=== PATIENT | female | born 1950 | race Hispanic/Latino ===

== ENCOUNTER 2021-09-15 11:33 | Emergency (ER) | payer OTHER ==
[2021-09-15 13:11] LABS: Urine Blood 1+ (Negative); Urine Glucose Trace (Negative); Urine Protein 3+ (Negative)
[2021-09-15 13:18] LABS: Absolute Lymphocytes (CBC) 3.2 K/uL (0.7-4.9); Hematocrit 48.1 % (36.0-45.0); Lymphocytes % 34.5 % (15.3-44.8); MCV 88.1 fL (80-100); RBC Red Blood Cell Count 5.45 M/uL (3.86-4.86)
[2021-09-15] MEDS ORDERED: KETOROLAC 30 MG/ML INJ ONE (13:19)
[2021-09-15 13:25] LABS: Urine Bacteria <20 /HPF (<20); Urine Mucus 1+ /HPF (None Seen)
[2021-09-15 13:29] LABS: Albumin 4.4 g/dL (3.4-5.0); Bilirubin Total 1.1 mg/dL (0.2-1.0); Protein, Total 8.4 g/dL (6.4-8.2)
[2021-09-15] MEDS ORDERED: LIDOCAINE 4% PATCH ONE (14:19)
--- NOTE | 2021-09-15 14:23 | RAD REPORT ---
EXAM DESCRIPTION: CT - Stone Protocol - 09/15/2021 2:17 pm CLINICAL HISTORY: Flank pain. Flank pain, kidney stone suspected COMPARISON: No comparisons TECHNIQUE: Axial images were obtained without oral or IV contrast. Lack of contrast limits solid org an and vascular assessment. The [id number] spans the entirety of the system partially obscuring uppermost abdomen and lung bases. Coronal reformatted images were obtained and reviewed. All CT scans are performed using dose optimization technique as appropriate and may include automated exposure control or mA/KV adjustment according to patient size. FINDINGS: The lower lung kilpatrick are clear. Imaged portions of the liver and spleen show no suspicious findings on non-contrast imaging. The panc reas and adrenal glands are normal. No pathologic lymphadenopathy in the abdomen or pelvis. No urinary tract stones or obstructive uropathy. No bowel obstruction, free air, free fluid or abscess. Normal appendix noted.Sigmoid diverticulosis w ithout diverticulitis. No significant bony abnormality. IMPRESSION: No urinary tract stones or obstructive uropathy.
[2021-09-15] MEDS ORDERED: MORPHINE 4 MG/ML SYR ONE (15:14)
[2021-09-15] MEDS ORDERED: CIPROFLOXACIN HCL 500 MG TAB ONE (16:53)
[2021-09-15] MEDS ORDERED: NA CHLORIDE 0.9% 50 ML ONE (16:53)
[2021-09-15] MEDS ORDERED: CEFTRIAXONE 1000 MG/VIAL ONE (16:53)
--- NOTE | 2021-09-15 17:17 | ER ---
Nurse's Notes [facility] Name: Meron Daly Age: 70 yrs Sex: Female : 1950 Arrival Date: 09/15/2021 Time: 11:41 Bed 14 Private MD: Diagnosis: UTI/ Urinary tract infection, site not specified;Low back pain Presentation: 09/15 12:45 Chief complaint: Patient states: Right flank pain - went to [facility] and was told I had a ld1 kidney infection. Reporting right flank pain. Coronavirus screen: At this time, the client does not indicate any symptoms associated with coronavirus-19. Ebola Screen: No symptoms or risks identified at this time. Initial Sepsis Screen: Does the patient meet any 2 criteria? No. Patient's initial sepsis screen is negative. Does the patient have a suspected source of infection? No. Patient's initial sepsis screen is negative. Risk Assessment: Do you want to hurt yourself or someone else? Patient reports no desire to harm self or others. Onset of symptoms was September 15, 2021 at 12:46. 12:45 Method Of Arrival: Ambulatory ld1 12:45 Acuity: MOO 3 ld1 Triage Assessment: 12:48 General: Appears in no apparent distress. comfortable, Behavior is calm, cooperative, ld1 appropriate for age. Pain: Complains of pain in right low back. EENT: No signs and/or symptoms were reported regarding the EENT system. Neuro: Level of Consciousness is awake, alert, obeys commands, Oriented to person, place, time, situation. Cardiovascular: Capillary refill < 3 seconds Patient's skin is warm and dry. Respiratory: Airway is patent Respiratory effort is even, unlabored. GI: Abdomen is round non-distended. : Reports burning with urination, pain in right flank(s). Derm: No signs and/or symptoms reported regarding the dermatologic system. Musculoskeletal: No signs and/or symptoms reported regarding the musculoskeletal system. Historical: - Allergies: 12:47 Sulfa (Sulfonamide Antibiotics); ld1 - Home Meds: 12:47 Cymbalta 30 mg oral cpDR 1 cap once daily [Active]; ld1 - PMHx: 12:48 GERD; Depressive disorder; ld1 - PSHx: 12:47 tubal ligation; Total abdominal hysterectomy; section; ld1 - Immunization history:: Adult Immunizations up to date, Client reports receiving the 2nd dose of the Covid vaccine. - Social history:: Smoking status: Patient denies any tobacco usage or history of. Patient/guardian denies using alcohol. Screenin:29 Abuse screen: Denies threats or abuse. Nutritional screening: No deficits noted. jd3 Tuberculosis screening: No symptoms or risk factors identified. Fall Risk Ambulatory Aid- None/Bed Rest/Nurse Assist (0 pts). Gait- Normal/Bed Rest/Wheelchair (0 pts) Mental Status- Oriented to own ability (0 pts). Total Vee Fall Scale indicates No Risk (0-24 pts). Assessment: 14:00 General: Appears in no apparent distress. comfortable, Behavior is calm, cooperative, jd3 appropriate for age. Pain: Complains of pain in right low back Pain currently is 10 out of 10 on a pain scale. Quality of pain is described as sharp, tender. Neuro: Fernandez Agitation-Sedation Scale (RASS): 0 - Alert and Calm Level of Consciousness is awake, alert, obeys commands, Oriented to person, place, time, situation. Cardiovascular: Capillary refill < 3 seconds Patient's skin is warm and dry. Respiratory: Airway is patent Respiratory effort is even, unlabored, Respiratory pattern is regular, symmetrical, Denies cough, shortness of breath. GI: No signs and/or symptoms were reported involving the gastrointestinal system. : Reports cramping. EENT: No signs and/or symptoms were reported regarding the EENT system. Derm: Skin is intact, Skin is dry, Skin is normal, Skin temperature is warm. Musculoskeletal: Circulation, motion, and sensation intact. Range of motion: intact in all extremities. 16:26 Reassessment: Patient appears in no apparent distress at this time. Patient and/or jd3 family updated on plan of care and expected duration. Pain level reassessed. Patient is alert, oriented x 3, equal unlabored respirations, skin warm/dry/pink. Patient states feeling better. 17:29 Reassessment: Patient appears in no apparent distress at this time. Patient and/or jd3 family updated on plan of care and expected duration. Pain level reassessed. Patient is alert, oriented x 3, equal unlabored respirations, skin warm/dry/pink. Patient denies pain at this time. Patient states feeling better. Vital Signs: 12:45 BP 135 / 107; Pulse 93; Resp 18; Temp 98.6(O); Pulse Ox 99% on R/A; Weight 72.57 kg; ld1 Height 5 ft. 0 in. (152.40 cm); Pain 8/10; 15:15 BP 159 / 83; Pulse 73; Resp 16; Pulse Ox 98% on R/A; jd3 16:26 BP 150 / 92; Pulse 75; Resp 16; Pulse Ox 97% on R/A; Pain 0/10; jd3 17:29 BP 158 / 86; Pulse 76; Resp 16; Pulse Ox 98% on R/A; Pain 0/10; jd3 12:45 Body Mass Index 31.25 (72.57 kg, 152.40 cm) ld1 ED Course: 11:41 Patient arrived in ED. mr 12:19 Francisco Staton PA is PHCP. cp 12:19 Jos Garcia MD is Attending Physician. cp 12:46 Triage completed. ld1 12:48 Arm band placed on right wrist. Patient placed in an exam room. EKG completed in ld1 triage. Results shown to MD. EKG completed in triage. Results shown to MD. 13:04 Inserted saline lock: 22 gauge in left antecubital area, using aseptic technique. tm3 13:11 Initial lab(s) drawn, by me, sent to lab. Urine collected: clean catch specimen, krystle tm3 colored. 13:39 Reed Houston, RN is Primary Nurse. jd3 14:19 Stone Protocol In Process Unspecified. EDMS 17:30 Patient has correct armband on for positive identification. Bed in low position. Call jd3 light in reach. Side rails up X 1. Adult w/ patient. Pulse ox on. NIBP on. 17:30 No provider procedures requiring assistance completed. IV discontinued, intact, jd3 bleeding controlled, No redness/swelling at site. Pressure dressing applied. Administered Medications: 13:14 Drug: Ketorolac 15 mg Route: IVP; Site: left antecubital; ld1 14:00 Follow up: Response: No adverse reaction jd3 14:24 Drug: Lidoderm Patch 5 % (700 mg/patch) 1 patches Route: Topical; Site: affected area; jd3 15:20 Follow up: Response: No adverse reaction jd3 15:15 Drug: morphine 4 mg Route: IVP; Infused Over: 4 mins; Site: left antecubital; jd3 16:00 Follow up: Response: No adverse reaction; RASS: Alert and Calm (0) jd3 16:52 Drug: Ciprofloxacin 500 mg Route: PO; jd3 17:32 Follow up: Response: No adverse reaction jd3 16:53 Drug: Rocephin - (cefTRIAXone) 1 grams Route: IVPB; Infused Over: 30 mins; Site: left jd3 antecubital; 17:31 Follow up: Response: No adverse reaction; IV Status: Completed infusion jd3 Medication: 17:31 VIS not applicable for this client. jd3 Outcome: 17:16 Discharge ordered by MD. cp 17:30 Discharged to home ambulatory, with family. jd3 17:30 Condition: stable 17:30 Discharge instructions given to patient, family, Instructed on discharge instructions, follow up and referral plans. medication usage, Demonstrated understanding of instructions, follow-up care, medications, Prescriptions given X 4. 17:31 Patient left the ED. jd3 Signatures: Dispatcher [employer] EDMS SpencerMichael tm3 Phelps, Lillie mr Francisco Staton, CARMEN PA Reed Tadeo RN RN jd3 Francesca Esqueda RN RN ld1 Corrections: (The following items were deleted from the chart) 12:47 12:45 Pulse 93bpm; Resp 18bpm; Pulse Ox 99% RA; Temp 98.6F Oral; 72.57 kg; Height 5 ft. ld1 0 in.; BMI: 31.2; Pain 8/10; ld1 12:48 12:46 Allergies: No Known Allergies; ld1 ld1
--- NOTE | 2021-09-15 17:17 | EDPHYS ---
Physician Documentation [facility] Name: Meron Daly Age: 70 yrs Sex: Female : 1950 Arrival Date: 09/15/2021 Time: 11:41 Bed 14 Private MD: ED Physician Jos Garcia HPI: 09/15 13:00 This 70 yrs old Female presents to ER via Ambulatory with complaints of Flank cp Pain. 13:00 The patient complains of pain in the right flank. The pain radiates to the right hip cp and right low back and right lower abdomen. 13:00 Associated signs and symptoms: Pertinent positives: dysuria, Pertinent negatives: cp diarrhea, fever, headache, pain radiating to the lower extremities, vomiting. Severity of pain: in the emergency department the pain is unchanged despite home interventions. The patient has been recently seen by a physician: in [facility], with similar presenting complaints, and apparently given a diagnosis of uti, prescribed cefdinir antibiotic but patient has not noticed improvement of urinary symptoms. Historical: - Allergies: 12:47 Sulfa (Sulfonamide Antibiotics); ld1 - Home Meds: 12:47 Cymbalta 30 mg oral cpDR 1 cap once daily [Active]; ld1 - PMHx: 12:48 GERD; Depressive disorder; ld1 - PSHx: 12:47 tubal ligation; Total abdominal hysterectomy; section; ld1 - Immunization history:: Adult Immunizations up to date, Client reports receiving the 2nd dose of the Covid vaccine. - Social history:: Smoking status: Patient denies any tobacco usage or history of. Patient/guardian denies using alcohol. ROS: 13:05 Constitutional: Negative for body aches, chills, fever, poor PO intake. cp 13:05 Respiratory: Negative for cough, shortness of breath, wheezing. cp 13:05 Abdomen/GI: Negative for vomiting, diarrhea, constipation. 13:05 Back: Positive for flank pain, on the right. 13:05 Neuro: Negative for altered mental status, headache, numbness, weakness. 13:05 All other systems are negative. Exam: 13:10 Constitutional: The patient appears in no acute distress, alert, awake, non-toxic, well cp developed, well nourished, uncomfortable. 13:10 Head/Face: Normocephalic, atraumatic. cp 13:10 Eyes: Periorbital structures: appear normal, Conjunctiva: normal, no exudate, no injection, Sclera: no appreciated abnormality, Lids and lashes: appear normal, bilaterally. 13:10 ENT: External ear(s): are unremarkable, Nose: is normal, Mouth: Lips: moist, Oral mucosa: pink and intact, moist, Posterior pharynx: Airway: no evidence of obstruction, patent. 13:10 Neck: ROM/movement: is normal, is supple, without pain, no range of motions limitations. 13:10 Chest/axilla: Inspection: normal. 13:10 Cardiovascular: Rate: normal, Rhythm: regular. 13:10 Respiratory: the patient does not display signs of respiratory distress, Respirations: normal, no use of accessory muscles, no retractions, labored breathing, is not present, Breath sounds: are clear throughout, no decreased breath sounds, no stridor, no wheezing. 13:10 Abdomen/GI: Inspection: abdomen appears normal, Bowel sounds: active, all quadrants, Palpation: soft, in all quadrants, moderate abdominal tenderness, in the posterior aspect of right lateral abdomen, anterior aspect of right lateral abdomen and right lower quadrant, rebound tenderness, is not appreciated, involuntary guarding, is not appreciated. 13:10 Back: pain, that is moderate, of the right low back, ROM is painful, with all movement. 13:10 Skin: no rash present. 13:10 Neuro: Orientation: to person, place \T\ time. Mentation: is normal, Motor: moves all fours, strength is normal, Sensation: is normal, Gait: is steady, at a normal pace, without difficulty. Vital Signs: 12:45 BP 135 / 107; Pulse 93; Resp 18; Temp 98.6(O); Pulse Ox 99% on R/A; Weight 72.57 kg; ld1 Height 5 ft. 0 in. (152.40 cm); Pain 8/10; 15:15 BP 159 / 83; Pulse 73; Resp 16; Pulse Ox 98% on R/A; jd3 16:26 BP 150 / 92; Pulse 75; Resp 16; Pulse Ox 97% on R/A; Pain 0/10; jd3 17:29 BP 158 / 86; Pulse 76; Resp 16; Pulse Ox 98% on R/A; Pain 0/10; jd3 12:45 Body Mass Index 31.25 (72.57 kg, 152.40 cm) ld1 MDM: 13:40 Patient medically screened. cp 17:15 Data reviewed: vital signs, nurses notes, lab test result(s), radiologic studies, CT cp scan. 17:15 Differential diagnosis: nephrolithiasis, pyelonephritis, UTI, diverticulitis. cp Counseling: I had a detailed discussion with the patient and/or guardian regarding: the historical points, exam findings, and any diagnostic results supporting the discharge/admit diagnosis, lab results, radiology results, the need for outpatient follow up, a family practitioner, to return to the emergency department if symptoms worsen or persist or if there are any questions or concerns that arise at home. Response to treatment: the patient's symptoms have markedly improved after treatment, and as a result, I will discharge patient. Special discussion: Based on the patient's Hx, exam, and Dx evaluation, there is no indication for emergent surgery or inpatient Tx. It is understood by the patient/guardian that if the Sx's persist or worsen they need to return immediately for re-evaluation. 09/15 12:50 Order name: CBC with Diff; Complete Time: 13:57 09/15 16:22 Interpretation: Normal except: RBC 5.45; HGB 16.6; HCT 48.1. 09/15 12:50 Order name: CMP; Complete Time: 13:57 09/15 16:23 Interpretation: Normal except: GLUC 136; BILIT 1.1; CA 10.3; TP 8.4; GLOB 4.0. 09/15 12:50 Order name: Lipase; Complete Time: 13:57 09/15 12:50 Order name: Urine Microscopic Only; Complete Time: 13:57 09/15 13:12 Order name: Urine Dipstick-Ancillary; Complete Time: 13:57 EDMS 09/15 16:24 Interpretation: Normal except: UBLD 1+; UKET 1+; UPROT 3+; UNIT Positive; UESTR 3+. 09/15 13:58 Order name: CT Stone Protocol 09/15 12:50 Order name: IV Saline Lock; Complete Time: 13:14 09/15 12:50 Order name: Labs collected and sent; Complete Time: 13:14 09/15 14:02 Order name: Stone Protocol; Complete Time: 16:21 EDMS 09/15 16:21 Interpretation: Report reviewed. cp 09/15 12:50 Order name: Urine Dipstick-Ancillary (obtain specimen); Complete Time: 13:14 cp Administered Medications: 13:14 Drug: Ketorolac 15 mg Route: IVP; Site: left antecubital; ld1 14:00 Follow up: Response: No adverse reaction jd3 14:24 Drug: Lidoderm Patch 5 % (700 mg/patch) 1 patches Route: Topical; Site: affected area; jd3 15:20 Follow up: Response: No adverse reaction jd3 15:15 Drug: morphine 4 mg Route: IVP; Infused Over: 4 mins; Site: left antecubital; jd3 16:00 Follow up: Response: No adverse reaction; RASS: Alert and Calm (0) jd3 16:52 Drug: Ciprofloxacin 500 mg Route: PO; jd3 17:32 Follow up: Response: No adverse reaction jd3 16:53 Drug: Rocephin - (cefTRIAXone) 1 grams Route: IVPB; Infused Over: 30 mins; Site: left jd3 antecubital; 17:31 Follow up: Response: No adverse reaction; IV Status: Completed infusion jd3 Disposition Summary: 09/15/21 17:16 Discharge Ordered Location: Home cp Problem: an ongoing problem cp Symptoms: have improved cp Condition: Stable cp Diagnosis - UTI/ Urinary tract infection, site not specified cp - Low back pain cp Followup: cp - With: Private Physician - When: 2 - 3 days - Reason: Recheck today's complaints Discharge Instructions: - Discharge Summary Sheet cp - Acute Back Pain, Adult cp - Urinary Tract Infection, Adult cp - Heat Therapy cp Forms: - Medication Reconciliation Form cp - Thank You Letter cp - Antibiotic Education cp - Prescription Opioid Use cp Prescriptions: - Lidoderm 5 % Topical adhesive patch,medicated - apply 1 patch by TOPICAL route once daily; 20 patch; Refills: 0, Product cp Selection Permitted - Ibuprofen 800 mg Oral Tablet - take 1 tablet by ORAL route every 8 hours As needed take with food; 30 tablet; cp Refills: 0, Product Selection Permitted - Cipro 500 mg Oral Tablet - take 1 tablet by ORAL route every 12 hours for 7 days; 14 tablet; Refills: 0, cp Product Selection Permitted - Tylenol-Codeine #3 300 mg-30 mg Oral - take 2 tablet by ORAL route every 8 hours; 14 tablet; Refills: 0, Product cp Selection Permitted Signatures: Dispatcher [employer] Francisco Pepe PA PA cp Davies, Jonathon RN RN jd3 Francesca Esqueda RN RN ld1 Corrections: (The following items were deleted from the chart) 12:48 12:46 Allergies: No Known Allergies; ld1 ld1 16:23 16:23 Normal except: GLUC 136. cp cp
[2021-09-15 18:21] VITALS: TEMP 98.6
[2021-09-15 18:32] VITALS: BP 158/86; O2SAT 98
== END 2021-09-15 17:31 | disposition home or self-care (01) ==
LOC: ER 11:33
DX: N39.0 Urinary tract infection, site not specified (principal); F32.A Depression, unspecified; Z88.2 Allergy status to sulfonamides
CPT/HCPCS: 96365; 85025; 36415; 83690; 80053; 76377; 74176; 96375; 99284; J2001; 81003; 81015

== ENCOUNTER 2021-09-19 15:04 | Emergency (ER) | payer OTHER ==
--- OUTSIDE RECORDS SUMMARY | 2021-09-19 15:16 | XMS REPORT | Continuity of Care Document ---
:1950 Author Organization [facility] t Address [address] [place] [address] [address]. [address] [place] [address] Care Team Providers Name Role Phone JOESPH SHAY Primary Care Physician Unavailable RADIOLOGY Attending Clinician Unavailable Bui_Q Attending Clinician Unavailable WINTER Attending Clinician Unavailable Michael BLOOD BANK SPECIALIST Attending Clinician Doctor Unassigned, Name Attending Clinician Unavailable Bui_Q_WAGDNU Attending Clinician Unavailable Robin-Gor_M Attending Clinician Unavailable [email or web address] Attending Clinician Unavailable Bib Attending Clinician [phone] Lab, Fam Pob I Attending Clinician Unavailable Toy MADRIGAL, A Attending Clinician Unavailable Radha PANDYAP Attending Clinician OMAGHOMI Attending Clinician Unavailable Robin-Gor_M_WAG Attending Clinician Unavailable Bui_Q Admitting Clinician Unavailable WINTER Admitting Clinician Unavailable Bui_Q_WAGDNU Admitting Clinician Unavailable Robin-Gor_M Admitting Clinician Unavailable [email or web address] Admitting Clinician Unavailable Robin-Gor_M_WAG Admitting Clinician Unavailable Payers Payer Name Policy Type Policy Number Effective Date Expiration Date William [employer] - [id number] [facility] 00:00:00 (MEDICARE REPLACEMENT/ADVANTA GE - [place] [id number] [place] [facility] DUAL [id number] 2021 COMP HMO D SNP 00:00:00 [facility] [id number] 2020 [place] 00:[place]:00 D[place] ELIG[place] (MEDICARE REPLACEMENT/ADVANTA GE - HMO) UHC - MEDICARE [id number] COMPLETE (MEDICARE REPLACEMENT HMO) Problems Condition Condition Condition Status Onset Resolution Last Treating Co mments Source Name Details Category Date Date Treatment Clinician Date Dry eyes Dry Eyes Problem Active 2020-02 Yong saleh 2-03 Family 00:00: Practic 00 e Leukocytos Leukocytos Problem Active [facility] is is 7-21 Family 00:00: Practic 00 e 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 Impairment 00:00: Pr actic 00 e Chronic Chronic Problem Active [facility] idiopathic Idiopathic 08-29 Fa terri constipati Constipati 00:00: Pr actic on on 00 e Overactive Overactive Problem Active V ill[facility] bladder Bladder 4-02 Family 00:00: Practic 00 e Osteopenia Osteopenia Problem Active [facility] 3-25 Family 00:00: Practic 00 e Insomnia Insomnia Problem Active Yong saleh 7-18 Family 00:00: Practic 00 e Asthma Asthma Problem Active [facility] 6-11 Family 00:00: Practic 00 e Dyslipidem Dyslipidem Problem Active V illage ia ia 3-04 Family 00:00: Practic 00 e Prediabete Prediabete Problem Active V illage s s 3-04 Family 00:00: Practic 00 e Anxiety Anxiety Problem Active [facility] disorder Disorder 1-28 Family 00:00: Practic 00 e Depressive Depressive Problem Active [facility] ill[facility] disorder Disorder 1-28 Family 00:00: Practic 00 e Obstructiv Obstructiv Problem Active V illage e sleep e Sleep 1-28 Family apnea Apnea 00:00: Practic syndrome Syndrome 00 e No known No known Disease Unive rs active active ity of problems problems [place] [facility] Allergies, Adverse Reactions, Alerts Allergy Allergy Status Severity Reaction(s) Onset Inactive Treating Comm ents Source Name Type Date Date Clinician SULFA Drug Active Hiv Univers (SULFONA Class 7-20 ity of MIDE 00:00: [place] ANTIBIOT 00 Medical ICS) Branch Sulfa Propensi Active Univers (Sulfona ty to 7-20 ity of mide adverse 00:00: [place] Antibiot reaction 00 Medica l ics) Branch SULFA Allergy Active [place] (SULFONA to Family MIDE substanc Practic ANTIBIOT e e ICS) [place] Allergy Active Hallucinatio V illage ast to ns Family substanc Practic e e NO KNOWN Drug Active [facility] ALLERGIE Class ity of [facility] [place] [facility] Social History Social Habit Start Date Stop Date Quantity Comments Source Exposure to 2021-09-03 2021-09-13 Not sure [facility] SARS-CoV-2 00:00:00 14:21:00 [facility] (event) Branch Alcohol intake 2021-09-13 2021-09-13 Current University 00:00:00 00:00:00 non-drinker of [place] [facility] alcohol [place] (finding) Sex Ass[birth year] At [birth year] Universit y of 00:00:00 00:00:00 [facility] Smoking Status Start Date Stop Date Source Never smoked tobacco [facility] [place] [place] Medications Ordered Filled Start Stop Current Ordering Indication Dosage Frequency Signature Comments Components Source Medication Medication Date Date Medication? Clinician (SIG) Name Name cefTRIAXone 2021- No 1000mg 1,000 mg, Univers (ROCEPHIN) 09-13 IV ity of 1,000 mg in 23:00: 23:16 Piggyback, [place] NaCl 0.9% 00 :00 ONCE, 1 Medical (NS) 50 mL dose, On [facility] h MINI-BAG Sat09/13/21 at 1800, Administer over 30 Minutes, 50 mL
Reas on for Anti-Infec tive: Documented Infection< br>Documen kwabena Infection Site: Urine<br&g t;Duration of Therapy: 7 days ondansetron 2021- No 4mg 4 mg, Univ ers (ZOFRAN-ODT 09-13 Oral, ity of ) 22:30: 21:46 ONCE, 1 [place] disintegrat 00 :00 dose, On [facility] ing tablet Sat 4 mg 09/13/21 at 1730, Routine ketorolac 2021- No 15mg 15 mg, Unive rs (TORADOL) 09-13 Slow IV ity of injection 21:30: 21:46 Push, [place] 15 mg 00 :00 ONCE, 1 Medical dose, On Branch 09/13/21 at 1630, CICI methocarbam Yes [id number] 500mg Take 1 Univers oL 500 mg 7-20 tablet by ity o f tablet 00:00: mouth 4 [place] 00 (four) Medical times Branch daily as needed for Pain (scale 4-6). ondansetron Yes [id number] 4mg Take 1 Univers 4 mg 7-20 tablet by ity of disintegrat 00:00: mouth [place] ing tablet 00 every 8 Medica l (eight) Branch hours as needed for Nausea and Vomiting (N/V). cefdinir 2021- Yes [id number] 300mg Take 1 U nivers 300 mg -13 09- capsule by ity of capsule 00:00: 04:59 mouth in [place] 00 :00 the Medical morning Branch and 1 capsule in the evening. Do all this for 10 days. phenazopyri 2021- Yes [id number] 200mg Take 1 Univers dine 200 mg -13 09- tablet by it y of tablet 00:00: 04:59 mouth in [place] 00 :00 the Medical morning Branch and 1 tablet at noon and 1 tablet in the evening. Do all this for 2 days. escitalopra Yes 20mg Take 20 mg Univers m (LEXAPRO) 11-01 by mouth ity of 20 mg 15:29: daily. [facility] escitalopra Yes 20mg Take 20 mg Univers m (LEXAPRO) 11-01 by mouth ity of 20 mg 15:29: daily. [facility] escitalopra Yes 20mg Take 20 mg Univers m (LEXAPRO) 11-01 by mouth ity of 20 mg 15:29: daily. [place] tablet 26 [facility] escitalopra Yes 20mg Take 20 mg Univers m (LEXAPRO) 11-01 by mouth ity of 20 mg 15:29: daily. [facility] 26 [facility] escitalopra Yes 20mg Take 20 mg Univers m (LEXAPRO) 11-01 by mouth ity of 20 mg 15:29: daily. [address] escitalopra Yes 20mg Take 20 mg Univers m (LEXAPRO) 11-01 by mouth ity of 20 mg 15:29: daily. [place] tablet 26 Medical Branch vitamin Yes 1000ug Take 1000 Uni vers B-12 9-07 mcg by ity of (VITAMIN 15:28: mouth [place] B-12) 1,000 32 daily. Medica l mcg tablet Branch VITAMIN B-6 Yes Take by Uni vers ORAL 07 mouth. ity of 15:28: [place] 32 Medical Branch Cod Liver Yes Take by Unive rs Oil 11-01 mouth. ity of (NATURAL 15:28: [place] COD LIVER 32 Medical OIL) Cap Branch vitamin Yes 1000ug Take 1000 Uni vers B-12 9-07 mcg by ity of (VITAMIN 15:28: mouth [place] B-12) 1,000 32 daily. Medica l mcg tablet Branch VITAMIN B-6 Yes Take by Uni vers ORAL 11-01 mouth. ity of 15:28: [place] 32 Medical Branch Cod Liver Yes Take by Unive rs Oil 11-01 mouth. ity of (NATURAL 15:28: [place] COD LIVER 32 Medical OIL) Cap Branch vitamin Yes 1000ug Take 1000 Uni vers B-12 9-07 mcg by ity of (VITAMIN 15:28: mouth [place] B-12) 1,000 32 daily. Medica l mcg tablet Branch VITAMIN B-6 Yes Take by Uni vers ORAL 11-01 mouth. ity of 15:28: [place] 32 Medical Branch Cod Liver Yes Take by Unive rs Oil 07 mouth. ity of (NATURAL 15:28: [place] COD LIVER 32 Medical OIL) Cap Branch vitamin Yes 1000ug Take 1000 Uni vers B-12 9-07 mcg by ity of (VITAMIN 15:28: mouth [place] B-12) 1,000 32 daily. Medica l mcg tablet Branch VITAMIN B-6 Yes Take by Uni vers ORAL 9-07 mouth. ity of 15:28: [place] 32 Medical Branch Cod Liver Yes Take by Unive rs Oil 07 mouth. ity of (NATURAL 15:28: [place] COD LIVER 32 Medical OIL) Cap Branch vitamin Yes 1000ug Take 1000 Uni vers B-12 9-07 mcg by ity of (VITAMIN 15:28: mouth [place] B-12) 1,000 32 daily. Medica l mcg tablet Branch VITAMIN B-6 Yes Take by Uni vers ORAL 11-01 mouth. ity of 15:28: [place] [address] Medical Branch Cod Liver Yes Take by Unive rs Oil 11-01 mouth. ity of (NATURAL 15:28: [place] COD LIVER 32 Medical OIL) Cap Branch vitamin Yes 1000ug Take 1000 Uni vers B-12 11-01 mcg by ity of (VITAMIN 15:28: mouth [place] B-12) 1,000 32 daily. Medica l mcg tablet Branch VITAMIN B-6 Yes Take by Uni vers ORAL 11-01 mouth. ity of 15:28: [place] [address] Medical Branch Cod Liver Yes Take by Unive rs Oil 11-01 mouth. ity of (NATURAL 15:28: [place] COD LIVER 32 Medical OIL) Cap Branch Cholecalcif Yes 1{capsu Take 1 Cap Univers tania 9-07 le} by mouth ity of (Vitamin 15:28: daily. [place] D3) 31 Medical (VITAMIN D) Branch 1,000 unit Cap Cholecalcif Yes 1{capsu Take 1 Cap Univers tania 9-07 le} by mouth ity of (Vitamin 15:28: daily. [place] D3) 31 Medical (VITAMIN D) Branch 1,000 unit Cap Cholecalcif Yes 1{capsu Take 1 Cap Univers tania 9-07 le} by mouth ity of (Vitamin 15:28: daily. [place] D3) 31 Medical (VITAMIN D) Branch 1,000 unit Cap Cholecalcif Yes 1{capsu Take 1 Cap Univers tania 9-07 le} by mouth ity of (Vitamin 15:28: daily. [place] D3) 31 Medical (VITAMIN D) Branch 1,000 unit Cap Cholecalcif Yes 1{capsu Take 1 Cap Univers tania 9-07 le} by mouth ity of (Vitamin 15:28: daily. [place] D3) 31 Medical (VITAMIN D) Branch 1,000 unit Cap Cholecalcif Yes 1{capsu Take 1 Cap Univers tania 9-07 le} by mouth ity of (Vitamin 15:28: daily. [place] D3) 31 Medical (VITAMIN D) Branch 1,000 unit Cap escitalopra Yes 20mg Take 20 mg Univers m (LEXAPRO) 11-01 by mouth ity of 20 mg 10:29: daily. [place] tablet 26 Medical Branch escitalopra Yes 20mg Take 20 mg Univers m (LEXAPRO) 11-01 by mouth ity of 20 mg 10:29: daily. [place] tablet 26 Medical Branch escitalopra Yes 20mg Take 20 mg Univers m (LEXAPRO) 11-01 by mouth ity of 20 mg 10:29: daily. [place] tablet 26 Medical Branch Cod Liver Yes Take by Unive rs Oil 11-01 mouth. ity of (NATURAL 10:28: [place] COD LIVER 32 Medical OIL) Cap Branch vitamin Yes 1000ug Take 1000 Uni vers B-12 9-07 mcg by ity of (VITAMIN 10:28: mouth [place] B-12) 1,000 32 daily. Medica l mcg tablet Branch VITAMIN B-6 Yes Take by Uni vers ORAL 11-01 mouth. ity of 10:28: [place] [address] Medical Branch Cod Liver Yes Take by Unive rs Oil 11-01 mouth. ity of (NATURAL 10:28: [place] COD LIVER 32 Medical OIL) Cap Branch vitamin Yes 1000ug Take 1000 Uni vers B-12 9-07 mcg by ity of (VITAMIN 10:28: mouth [place] B-12) 1,000 32 daily. Medica l mcg tablet Branch VITAMIN B-6 Yes Take by Uni vers ORAL 11-01 mouth. ity of 10:28: [place] [address] Medical Branch Cod Liver Yes Take by Unive rs Oil 11-01 mouth. ity of (NATURAL 10:28: [place] COD LIVER 32 Medical OIL) Cap Branch vitamin Yes 1000ug Take 1000 Uni vers B-12 9-07 mcg by ity of (VITAMIN 10:28: mouth [place] B-12) 1,000 32 daily. Medica l mcg tablet Branch VITAMIN B-6 Yes Take by Uni vers ORAL 9-07 mouth. ity of 10:28: [address] Branch Cholecalcif Yes 1{capsu Take 1 Cap Univers tania 9-07 le} by mouth ity of (Vitamin 10:28: daily. [place] D3) 31 Medical (VITAMIN D) Branch 1,000 unit Cap Cholecalcif Yes 1{capsu Take 1 Cap Univers tania 9-07 le} by mouth ity of (Vitamin 10:28: daily. [place] D3) 31 Medical (VITAMIN D) Branch 1,000 unit Cap Cholecalcif Yes 1{capsu Take 1 Cap Univers tania 9-07 le} by mouth ity of (Vitamin 10:28: daily. [place] D3) 31 Medical (VITAMIN D) Branch 1,000 unit Cap albuterol albuterol No albuterol [place] sulfate HFA sulfate HFA sulfate Family 90 90 HFA 90 Practic mcg/actuati mcg/actuati mcg/actuat e on aerosol on aerosol ion inhaler inhaler aerosol inhale 2 inhale 2 inhaler puffs BY puffs BY inhale 2 MOUTH EVERY MOUTH EVERY puffs BY 4-6 HOURS 4-6 HOURS MOUTH NEEDED NEEDED EVERY 4-6 FOR FOR HOURS SHORTNESS SHORTNESS NEEDED FOR OF BREATH OF BREATH SHORTNESS OR FOR OR FOR OF BREATH WHEEZING WHEEZING OR FOR WHEEZING duloxetine duloxetine No duloxetine [place] 60 mg 60 mg 60 mg Family capsule,del capsule,del capsule,de Practic ayed ayed layed e release release release TAKE 1 TAKE 1 TAKE 1 CAPSULE BY CAPSULE BY CAPSULE BY MOUTH DAILY MOUTH DAILY MOUTH DIRECTED DIRECTED DAILY DIRECTED ibuprofen ibuprofen No ibuprofen [facility] 800 mg 800 mg 800 mg Family tablet TAKE tablet TAKE tablet Practic 1 TABLET BY 1 TABLET BY TAKE 1 e MOUTH THREE MOUTH THREE TABLET BY TIMES DAILY TIMES DAILY MOUTH NEEDED NEEDED THREE TIMES DAILY NEEDED Linzess 290 Linzess 290 No Linzess [place] mcg capsule mcg capsule 290 mcg Family TAKE 1 TAKE 1 capsule Practic CAPSULE BY CAPSULE BY TAKE 1 e MOUTH DAILY MOUTH DAILY CAPSULE BY NEEDED NEEDED MOUTH DAILY NEEDED neomycin-po neomycin-po No neomycin-p [facility] lymyxin-dex lymyxin-dex olymyxin-d Family ameth 3.5 ameth 3.5 exameth Pr actic mg/mL-10,00 mg/mL-10,00 3.5 e 0 0 mg/mL-10,0 unit/mL-0.1 unit/mL-0.1 00 % eye drops % eye drops unit/mL-0. INSTILL 1 INSTILL 1 1% eye DROP INTO DROP INTO drops AFFECTED AFFECTED INSTILL 1 EYE(S) BY EYE(S) BY DROP INTO OPHTHALMIC OPHTHALMIC AFFECTED ROUTE EVERY ROUTE EVERY EYE(S) BY 4 HOURS FOR 4 HOURS FOR OPHTHALMIC 7 DAYS 7 DAYS ROUTE EVERY 4 HOURS FOR 7 DAYS triamcinolo triamcinolo No triamcinol [facility] ne one Family acetonide acetonide acetonide Practic 0.5 % 0.5 % 0.5 % e topical topical topical cream APPLY cream APPLY cream thin layer thin layer APPLY thin EXTERNALLY EXTERNALLY layer APPLY TWICE APPLY TWICE EXTERNALLY DAILY DAILY APPLY NEEDED FOR NEEDED FOR TWICE itching itching DAILY NEEDED FOR itching Immunizations Ordered Immunization Filled Immunization Date Status Commen ts Source Name Name pneumococcal pneumococcal 2021-01-09 Completed [facility] polysaccharide PPV23 polysaccharide PPV23 17:18:29 Practice influenza, high-dose, influenza, high-dose, 2021-01-09 Completed [facility] quadrivalent quadrivalent 17:17:00 Practice COVID-19 (SARS-COV-2) COVID-19 (SARS-COV-2) 2020-06-24 Completed [facility] vaccine, unspecified vaccine, unspecified 00:00:00 Practice COVID-19 (SARS-COV-2) COVID-19 (SARS-COV-2) 2020-05-26 Completed [facility] vaccine, unspecified vaccine, unspecified 00:00:00 Practice influenza, high-dose, influenza, high-dose, 2020-02-04 Completed [facility] quadrivalent quadrivalent 15:55:00 Practice pneumococcal pneumococcal 2019-05-14 Completed [facility] conjugate PCV 13 conjugate PCV 13 10:10:00 Pr actice influenza, influenza, 2018-12-26 [facility] injectable, injectable, 00:00:00 Practice quadrivalent quadrivalent Vital Signs Vital Name Observation Time Observation Value Comments Source Systolic blood 2021-09-13 23:30:00 142 mm[Hg] Univer sity [facility] Diastolic blood 2021-09-13 23:30:00 77 [facility]Hg[facility] 2021-09-13 23:30:00 68 /min [facility] Respiratory rate 2021-09-13 23:30:00 15 /min [facility] Oxygen saturation in 2021-09-13 23:30:00 95 /min [facility] Arterial blood by [place] [facility] Pulse oximetry Branch Body weight 2021-09-13 21:08:00 75.751 kg [facility] BMI 2021-09-13 21:08:00 32.61 kg/m2 [facility] Body temperature 2021-09-13 21:08:00 36.89 [place] [facility] Body height 2021-09-13 21:08:00 152.4 cm [facility] BP Diastolic 2021-01-27 00:00:00 75 mm[Hg] [facility] Height 2021-01-27 00:00:00 61 [in_i] [facility] BMI (Body Mass 2021-01-27 00:00:00 30.8 kg/m2 [facility] BP Systolic 2021-01-27 00:00:00 131 mm[Hg] [facility] Body Weight 2021-01-27 00:00:00 163.2 [lb_av] [facility] BP Diastolic 2021-01-09 00:00:00 78 mm[Hg] [facility] Height 2021-01-09 00:00:00 61 [in_i] [facility] BMI (Body Mass 2021-01-09 00:00:00 31 kg/m2 [facility] BP Systolic 2021-01-09 00:00:00 126 mm[Hg] [facility] Body Weight 2021-01-09 00:00:00 164 [lb_av] [facility] BP Diastolic 2020-10-04 00:00:00 82 mm[Hg] [facility] Height 2020-10-04 00:00:00 61 [in_i] [facility] BMI (Body Mass 2020-10-04 00:00:00 31.6 kg/m2 [facility] BP Systolic 2020-10-04 00:00:00 149 mm[Hg] [facility] Body Weight 2020-10-04 00:00:00 167 [lb_av] [facility] BP Diastolic 2020-08-29 00:00:00 84 mm[Hg] [facility] Height 2020-08-29 00:00:00 61 [in_i] [facility] BMI (Body Mass 2020-08-29 00:00:00 29.5 kg/m2 [facility] BP Systolic 2020-08-29 00:00:00 150 mm[Hg] [facility] Body Weight 2020-08-29 00:00:00 156 [lb_av] [facility] Height 2020-08-10 00:00:00 61 [in_i] [facility] BMI (Body Mass 2020-08-10 00:00:00 28.7 kg/m2 [facility] Body Weight 2020-08-10 00:00:00 152 [lb_av] [facility] BP Diastolic 2020-05-27 00:00:00 77 mm[Hg] [facility] Height 2020-05-27 00:00:00 57.5 [in_i] [facility] BMI (Body Mass 2020-05-27 00:00:00 33.3 kg/m2 [facility] BP Systolic 2020-05-27 00:00:00 133 mm[Hg] [facility] Body Weight 2020-05-27 00:00:00 156.8 [lb_av] [facility] BP Diastolic 2020-02-04 00:00:00 77 mm[Hg] [facility] Height 2020-02-04 00:00:00 57.5 [in_i] [facility] BMI (Body Mass 2020-02-04 00:00:00 32.5 kg/m2 [facility] BP Systolic 2020-02-04 00:00:00 117 mm[Hg] [facility] Body Weight 2020-02-04 00:00:00 153 [lb_av] [facility] Height 2020-01-07 00:00:00 57.5 [in_i] [facility] BMI (Body Mass 2020-01-07 00:00:00 31.9 kg/m2 [facility] Body Weight 2020-01-07 00:00:00 150 [lb_av] [facility] BP Diastolic 2019-10-29 00:00:00 79 mm[Hg] [facility] Height 2019-10-29 00:00:00 57.5 [in_i] [facility] BMI (Body Mass 2019-10-29 00:00:00 32.6 kg/m2 [facility] BP Systolic 2019-10-29 00:00:00 118 mm[Hg] [facility] Body Weight 2019-10-29 00:00:00 153.2 [lb_av] [facility] Height 2019-10-01 00:00:00 57.5 [in_i] [facility] BMI (Body Mass 2019-10-01 00:00:00 33.6 kg/m2 [facility] Body Weight 2019-10-01 00:00:00 158 [lb_av] [facility] Height 2019-08-06 00:00:00 57.5 [in_i] [facility] BMI (Body Mass 2019-08-06 00:00:00 33.6 kg/m2 [facility] Body Weight 2019-08-06 00:00:00 158 [lb_av] [facility] BP Diastolic 2019-05-14 00:00:00 73 mm[Hg] [facility] Height 2019-05-14 00:00:00 57.5 [in_i] [facility] BMI (Body Mass 2019-05-14 00:00:00 33.1 kg/m2 [facility] BP Systolic 2019-05-14 00:00:00 120 mm[Hg] [facility] Body Weight 2019-05-14 00:00:00 155.6 [lb_av] [facility] BP Diastolic 2019-03-24 00:00:00 81 mm[Hg] [facility] Height 2019-03-24 00:00:00 57.5 [in_i] [facility] BMI (Body Mass 2019-03-24 00:00:00 34 kg/m2 [facility] BP Systolic 2019-03-24 00:00:00 136 mm[Hg] [facility] Body Weight 2019-03-24 00:00:00 160 [lb_av] [facility] Procedures Procedure Date / Time Performing Clinician Source Performed CT ABDOMEN PELVIS WO 2021-09-13 21:58:14 [facility] COMP. METABOLIC PANEL 2021-09-13 21:36:00 Bailey Winter [facility] ([id number]) Medical [place] CBC WITH DIFF 2021-09-13 21:36:[address] [facility] [place] URINALYSIS 2021-09-13 21:12:[address] [facility] [place] CONSENT/REFUSAL FOR 2021-09-13 21:02:49 Doctor Unassigned, No Un [facility] DIAGNOSIS AND TREATMENT Name [facility] X-RAY OF HAND 3+ VIEW 2019-05-14 00:00:00 [facility] US, abdomen, complete 2019-05-14 00:00:00 [facility] MAMMO, screening, 2019-03-24 00:00:00 [facility] terri digital, bilateral Practice Carpal Tunnel Surgery 2001-02-25 00:00:00 [facility] Hysterectomy (Total) 1989-02-25 00:00:00 [facility] Urology Surgery [facility] Procedure Practice Plan of Care Planned Activity Planned Date Details Comments Source Instructions [facility] Encounters Start End Encounter Admission Attending Care Care Encounter Source Date/Time Date/Time Type Type Clinicians Facility Department ID 2021-09-25 2021-09-25 Outpatient R RADIOLOGY [facility] [id number] Univers 00:00:00 00:00:00 [id number] ity of [facility] 2021-09-14 2021-09-14 Outpatient Bui_Q VFP VFP [id number] [facility] 11:49:00 11:49:00 [id number] Family Practic e 2021-09-14 2021-09-14 Outpatient Bui_Q VFP VFP [id number] [facility] 11:49:00 11:49:00 [id number] Family Practic e 2021-09-13 2021-09-13 Emergency X WINTER, [facility] ERT [id number] Univers 16:10:00 18:34:00 BAILEY hagany of [facility] 2021-09-13 2021-09-13 Emergency Winter, [facility] [id number] Univers 16:10:00 18:34:00 Bailey REINOSO [id number] i ty of [place] [id number] [id number] [facility] 084 Branch 2021-09-13 2021-09-13 Orders Doctor FLORINDA [id number] Univers 00:00:00 00:00:00 Only Unassigned, EVAN [id number] ity of [place] [facility] [id number] [facility] [id number] [facility] 009 Branch 2021-06-10 2021-06-10 Outpatient Bui_Q VFP VFP [id number] [facility] 08:48:00 08:48:00 [id number] Family Practic e 2021-06-10 2021-06-10 Outpatient Bui_Q VFP VFP [id number] [facility] 08:48:00 08:48:00 [id number] Family Practic e 2021-06-10 2021-06-10 Outpatient Bui_Q VFP VFP [id number] [facility] 08:48:00 08:48:00 [id number] Family Practic e 2021-06-10 2021-06-10 Outpatient Bui_Q VFP VFP [id number] [facility] 08:48:00 08:48:00 [id number] Family Practic e 2021-04-28 2021-04-28 Outpatient Bui_Q VFP VFP [id number] [facility] 04:12:00 04:12:00 Family Practic e 2021-04-28 2021-04-28 Outpatient Bui_Q VFP VFP [id number] [facility] 04:12:00 04:12:00 [id number] Family Practic e 2021-04-28 2021-04-28 Outpatient Bui_Q VFP VFP [id number] [facility] 04:12:00 04:12:00 [id number] Family Practic e 2021-04-28 2021-04-28 Outpatient Bui_Q_WAGDN VFP VFP [id number] [facility] 04:12:00 04:12:00 U [id number] Family Practic e 2021-03-21 2021-03-21 Outpatient Bui_Q VFP VFP [id number] [facility] 03:18:00 03:18:00 [id number] Family Practic e 2021-03-21 2021-03-21 Outpatient Bui_Q VFP VFP [id number] [facility] 03:18:00 03:18:00 Family Practic e 2021-03-21 2021-03-21 Outpatient Bui_Q VFP VFP [id number] [facility] 03:18:00 03:18:00 Family Practic e 2021-03-20 2021-03-20 Outpatient Bui_Q VFP VFP [id number] [facility] 01:37:00 01:37:00 Family Practic e 2021-02-15 2021-02-15 Outpatient Bui_Q VFP VFP [id number] [facility] 07:56:00 07:56:00 [id number] Family Practic e 2021-02-13 2021-02-13 Outpatient Bui_Q_WAGDN VFP VFP [id number] [facility] 02:51:00 02:51:00 U [id number] Family Practic e 2021-02-08 2021-02-08 Outpatient Bui_Q VFP VFP [id number] [facility] 06:26:00 06:26:00 [id number] Family Practic e 2021-02-06 2021-02-06 Outpatient Bui_Q_WAGDN VFP VFP [id number] [facility] 04:28:00 04:28:00 U [id number] Family Practic e 2021-01-27 2021-01-27 Outpatient Bui_Q VFP VFP [id number] [facility] 04:11:00 04:11:00 [id number] Family Practic e 2021-01-27 2021-01-27 Porchae VFP [place] - [id number] [place] 00:00:00 00:00:00 Bhavna Wallace Famil y PEDIATRIC NURSE: 6122 Medical - Pract [address] [address] , Ph. 2021-01-09 2021-01-09 Outpatient Bui_Q VFP VFP [id number] [facility] 03:50:00 03:50:00 [id number] Family Practic e 2021-01-09 2021-01-09 Outpatient Bui_Q_WAGDN VFP VFP [id number] [facility] 03:50:00 03:50:00 U [id number] Family Practic e 2021-01-09 2021-01-09 Henrry Cochran VFP [place] - [id number] [facility] 00:00:00 00:00:00 MD Reyes: Bhavna Famil y 6122 Medical - Practi [address] ([place] [address] , Ph. 2020-12-16 2020-12-16 Outpatient Bui_Q_WAGDN VFP VFP [id number] [facility] 05:33:00 05:33:00 U [id number] Family Practic e 2020-12-16 2020-12-16 Outpatient Bui_Q_WAGDN VFP VFP [id number] [facility] 05:33:00 05:33:00 U [id number] Family Practic e 2020-11-21 2020-11-21 Outpatient Robin-Gor_M VFP VFP [id number] [facility] 03:22:00 03:22:00 [id number] Family Practic e 2020-11-21 2020-11-21 Outpatient Robin-Gor_M VFP VFP [id number] [place] 03:22:00 03:22:00 [id number] Family Practic e 2020-11-21 2020-11-21 Outpatient Robin-Gor_M VFP VFP [id number] [facility] 03:22:00 03:22:00 [id number] Family Practic e 2020-10-20 2020-10-20 Outpatient Bui_Q_WAG VFP VFP [id number] [facility] 04:57:00 04:57:00 [id number] Family Practic e 2020-10-07 2020-10-07 Outpatient Robin-Gor_M VFP VFP [id number] [place] 08:52:00 08:52:00 [id number] Family Practic e 2020-10-07 2020-10-07 Outpatient Bui_Q_WAG VFP VFP [id number] [facility] 08:52:00 08:52:00 [id number] Family Practic e 2020-10-07 2020-10-07 Outpatient Robin-Gor_M VFP VFP [id number] [facility] 08:52:00 08:52:00 [id number] Family Practic e 2020-10-07 2020-10-07 Outpatient Robin-Gor_M VFP VFP [id number] [place] 08:52:00 08:52:00 [id number] Family Practic e 2020-10-07 2020-10-07 Outpatient Robin-Gor_M VFP VFP [id number] [facility] 08:52:00 08:52:00 [id number] Family Practic e 2020-10-07 2020-10-07 Outpatient Robin-Gor_M VFP VFP [id number] [facility] 08:52:00 08:52:00 [id number] Family Practic e 2020-10-05 2020-10-05 Outpatient Bui_Q_WAG VFP VFP [id number] [facility] 03:49:00 03:49:00 [id number] Family Practic e 2020-10-04 2020-10-04 Outpatient Bui_Q_WAG VFP VFP [id number] [facility] 02:56:00 02:56:00 [id number] Family Practic e 2020-10-04 2020-10-04 Henrry Cochran VFP [place] - [id number] [facility] 00:00:00 00:00:00 MD Reyes: [facility] Famil y [address] [facility], [place] [address], ([facility]) [place] [address] , Ph. 2020-09-29 2020-09-29 Outpatient Bui_Q_WAG VFP VFP [id number] [facility] 11:04:00 11:04:00 [id number] Family Practic e 2020-09-29 2020-09-29 Outpatient Robin-Gor_M VFP VFP [id number] [facility] 11:04:00 11:04:00 [id number] Family Practic e 2020-09-23 2020-09-23 Outpatient Bui_Q_WAG VFP VFP [id number] [facility] 01:18:00 01:18:00 [id number] Family Practic e 2020-09-23 2020-09-23 Outpatient Bui_Q_WAG VFP VFP [id number] [facility] 01:18:00 01:18:00 [id number] Family Practic e 2020-09-15 2020-09-15 Outpatient Bui_Q_WAG VFP VFP [id number] [facility] 03:34:00 03:34:00 [id number] Family Practic e 2020-09-10 2020-09-10 Outpatient [id number] DISP DISP [id number] Dispatc 06:11:00 06:11:00 3 16440 h Health 2020-09-10 2020-09-10 Outpatient Bui_Q_WAG VFP VFP [id number] [facility] 01:34:00 01:34:00 [id number] Family Practic e 2020-09-09 2020-09-09 Outpatient [id number] DISP DISP [id number] Dispatc 11:43:00 11:43:00 3 [id number] Health 2020-09-02 2020-09-02 Outpatient Bui_Q_WAG VFP VFP [id number] [facility] 06:44:00 06:44:00 [id number] Family Practic e 2020-09-02 2020-09-02 Outpatient Bui_Q_WAG VFP VFP [id number] [facility] 06:44:00 06:44:00 [id number] Family Practic e 2020-08-29 2020-08-29 Outpatient Bui_Q_WAG VFP VFP [id number] - [facility] 07:29:00 07:29:00 [id number] Family Practic e 2020-08-29 2020-08-29 Henrry Cochran VFP [place] - [id number] [facility] 00:00:00 00:00:00 MD Reyes: [facility] [place] [address], ([facility]) [place] [address] , Ph. 2020-08-23 2020-08-23 Outpatient DISP DISP [id number] Dispatc 08:26:00 08:26:00 3 [id number] h Health 2020-08-22 2020-08-22 Outpatient [id number] DISP DISP [id number] Dispatc 03:25:00 03:25:00 3 [id number] h Health 2020-08-21 2020-08-21 Outpatient [id number] DISP DISP [id number] Dispatc 11:52:00 11:52:00 3 [id number] h Health 2020-08-21 2020-08-21 Outpatient Bib, DISP DISP [id number] 00:00:00 00:00:00 Marcial [id number] 2020-08-20 2020-08-20 Outpatient [id number] DISP DISP [id number] Dispatc 07:20:00 07:20:00 3 [id number] Health 2020-08-16 2020-08-16 Outpatient Bui_Q_WAG VFP VFP [id number] [facility] 08:34:00 08:34:00 [id number] Family Practic e 2020-08-13 2020-08-13 Outpatient Bui_Q_WAG VFP VFP [id number] [facility] 01:03:00 01:03:00 [id number] Family Practic e 2020-08-13 2020-08-13 Outpatient Robin-Gor_M VFP VFP [id number] [facility] 01:03:00 01:03:00 [id number] Family Practic e 2020-08-13 2020-08-13 Outpatient Robin-Gor_M VFP VFP [id number] [facility] 01:03:00 01:03:00 [id number] Family Practic e 2020-08-10 2020-08-10 Outpatient Bui_Q_WAG VFP VFP [id number] [facility] 05:55:00 05:55:00 [id number] Family Practic e 2020-08-10 2020-08-10 Ronnalyn VFP [place] - [id number] [facility] 00:00:00 00:00:00 Jaspal, [facility] Famil y PEDIATRIC NURSE: 6122 Medical - Pract [place] [address], ([facility]) [place] [address] , Ph. 2020-07-04 2020-07-04 Outpatient Robin-Gor_M VFP VFP [id number] [facility] 05:24:00 05:24:00 [id number] Family Practic e 2020-07-04 2020-07-04 Outpatient Robin-Gor_M VFP VFP [id number] [facility] 05:24:00 05:24:00 [id number] Family Practic e 2020-05-31 2020-05-31 Outpatient Robin-Gor_M VFP VFP [id number] [facility] 08:02:00 08:02:00 [id number] Family Practic e 2020-05-31 2020-05-31 Outpatient Bui_Q_WAG VFP VFP [id number] [facility] 08:02:00 08:02:00 [id number] Family Practic e 2020-05-31 2020-05-31 Outpatient Robin-Gor_M VFP VFP [id number] [facility] 08:02:00 08:02:00 [id number] Family Practic e 2020-05-27 2020-05-27 Outpatient Robin-Gor_M VFP VFP [id number] [facility] 06:32:00 06:32:00 [id number] Family Practic e 2020-05-27 2020-05-27 Outpatient Robin-Gor_M VFP VFP [id number] [facility] 06:32:00 06:32:00 [id number] Family Practic e 2020-05-27 2020-05-27 Henrry Cochran VFP [place] - [id number] [facility] 00:00:00 00:00:00 MD Reyes: [place] [facility] [address] Medical - Practi c [employer] [facility]_ALYSA_[facility], [address], [place] [address] , Ph. 2020-05-25 2020-05-25 Outpatient Bui_Q_WAG VFP VFP [id number] [facility] 04:21:00 04:21:00 [id number] Family Practic e 2020-05-11 2020-05-11 Outpatient Bui_Q_WAG VFP VFP [id number] [facility] 08:37:00 08:37:00 [id number] Family Practic e 2020-05-11 2020-05-11 Outpatient Robin-Gor_M VFP VFP [id number] [facility] 08:37:00 08:37:00 [id number] Family Practic e 2020-05-11 2020-05-11 Outpatient Bui_Q_WAG VFP VFP [id number] [facility] 08:37:00 08:37:00 [id number] Family Practic e 2020-05-11 2020-05-11 Outpatient Robin-Gor_M VFP VFP [id number] [facility] 08:37:00 08:37:00 [id number] Family Practic e 2020-05-10 2020-05-10 Outpatient Bui_Q_WAG VFP VFP [id number] [facility] 04:29:00 04:29:00 [id number] Family Practic e 2020-05-10 2020-05-10 Ronnalyn VFP [place] - [id number] [facility] 00:00:00 00:00:00 Bhavna Shay Famil y PEDIATRIC NURSE: 6122 Medical - Pract [employer] [facility] , [place] [address], ([facility]) [place] [address] , Ph. 2020-04-07 2020-04-07 Outpatient Bui_Q_WAG VFP VFP [id number] [facility] 12:41:00 12:41:00 [id number] Family Practic e 2020-04-07 2020-04-07 Outpatient Robin-Gor_M VFP VFP [id number] [facility] 12:40:00 12:40:00 [id number] Family Practic e 2020-04-07 2020-04-07 Outpatient Robin-Gor_M VFP VFP [id number] [facility] 12:40:00 12:40:00 [id number] Family Practic e 2020-04-05 2020-04-05 Outpatient Bui_Q_WAG VFP VFP [id number] [facility] 11:11:00 11:11:00 [id number] Family Practic e 2020-02-09 2020-02-09 Outpatient Robin-Gor_M VFP VFP [id number] [facility] 04:53:00 04:53:00 [id number] Family Practic e 2020-02-09 2020-02-09 Outpatient Robin-Gor_M VFP VFP [id number] [facility] 04:53:00 04:53:00 [id number] Family Practic e 2020-02-09 2020-02-09 Outpatient Robin-Gor_M VFP VFP [id number] [facility] 04:53:00 04:53:00 [id number] Family Practic e 2020-02-09 2020-02-09 Outpatient Robin-Gor_M VFP VFP [id number] [facility] 04:53:00 04:53:00 [id number] Family Practic e 2020-02-04 2020-02-04 Outpatient Bui_Q_WAG VFP VFP [id number] [facility] 03:55:00 03:55:00 [id number] Family Practic e 2020-02-04 2020-02-04 Henrry Cochran VFP [place] - [id number] [facility] 00:00:00 00:00:00 MD Reyes: [place] [facility] 6122 Medical - Practi c [facility] e , [address], ([place]) [place] [address] , Ph. 2020-01-12 2020-01-12 Outpatient Bui_Q_WAG VFP VFP [id number] [facility] 09:53:00 09:53:00 [id number] Family Practic e 2020-01-12 2020-01-12 Outpatient Robin-Gor_M VFP VFP [id number] [place] 09:53:00 09:53:00 [id number] Family Practic e 2020-01-12 2020-01-12 Outpatient Bui_Q_WAG VFP VFP [id number] [place] 09:53:00 09:53:00 [id number] Family Practic e 2020-01-12 2020-01-12 Outpatient Bui_Q_WAG VFP VFP [id number] [facility] 09:53:00 09:53:00 [id number] Family Practic e 2020-01-10 2020-01-10 Telephone Lab, [facility] 1..840.114 [id number] [facility] 00:00:00 00:00:00 Fam Pob I Health 350.1.13.10 ity of [place] 4.2.7.2.686 Audi as Professio [phone] [address] Office Building One 2020-01-10 2020-01-10 Nurse FLORINDA Yeager 1.2.840.114 [id number] [facility] 00:00:00 00:00:00 Triage Jen GORDON 350.1.13.10 i ty of [facility] 4.2.7.2.686 Audi as [phone] [address] 2020-01-10 2020-01-10 Letter FLORINDA Yeager 1.2.840.114 [id number] Univers 00:00:00 00:00:00 (Out) Jen GORDON 350.1.13.10 i ty of [facility] 4.2.7.2.686 Audi as [phone] [address] 2020-01-10 2020-01-10 Telephone Lab, [facility] 1.2.840.114 [id number] Univers 00:00:00 00:00:00 Fam Pob I Health 350.1.13.10 ity of [place] 4.2.7.2.686 Audi as Professio [phone] [address] Office Building [facility] 2020-01-10 2020-01-10 Letter FLORINDA Yeager 1.2.840.114 [id number] Univers 00:00:00 00:00:00 (Out) Jen GORDON 350.1.13.10 i ty of [facility] 4.2.7.2.686 Audi as [phone] [address] 2020-01-09 2020-01-09 Laboratory Lab, [facility] Pob I [facility] 1.2. 840.114 [id number] Univers 11:07:18 11:27:18 Only [facility] 350.1.13.10 ity of [place] 4.2.7.2.686 Audi as Professio [phone] [address] Office [facility] 2020-01-09 2020-01-09 Outpatient R [facility] [id number] Univers 11:20:00 11:20:00 [facility] ity [facility] 2020-01-09 2020-01-09 Letter Doctor NEELY 1.2.840.114 [id number] Univers 00:00:00 00:00:00 (Out) UnasslynnEVAN 350.1.13.10 ity of [place] [facility] 4.2.7.2.686 Audi as [phone] [address] 2020-01-07 2020-01-07 Outpatient Melitai_Q_[facility] VF VFP [id number] [facility] 01:29:00 01:29:00 [id number] Family Practic e 2020-01-07 2020-01-07 Barbie [facility] [place] - [id number] [facility] 00:00:00 00:00:00 [facility] chi MD: 7363 Medical - Pract [facility], [place] [address], ([facility]) [place] [address] , Ph. 2019-11-03 2019-11-03 Outpatient Parker VFP VFP [id number] [facility] 09:09:00 09:09:00 [id number] Family Practic e 2019-10-29 2019-10-29 Outpatient Bui_Q_WAG VFP VFP [id number] [facility] 12:58:00 12:58:00 [id number] Family Practic e 2019-10-29 2019-10-29 Peg O VFP [place] - [id number] [facility] 00:00:00 00:00:00 Lennie [facility] Fami ly MD: 6165 Medical - Pract [place] [address], ([place] [address] , Ph. 2019-10-07 2019-10-07 Outpatient Bui_Q_WAG VFP VFP [id number] [facility] 04:40:00 04:40:00 [id number] Family Practic e 2019-10-07 2019-10-07 Outpatient Lobito-Brock_M VFP VFP [id number] [facility] 04:40:00 04:40:00 [id number] Family Practic e 2019-10-07 2019-10-07 Outpatient Lobito-Brock_M VFP VFP [id number] [facility] 04:40:00 04:40:00 [id number] Family Practic e 2019-10-01 2019-10-01 Outpatient Bui_Q_WAG VFP VFP [id number] [facility] 08:22:00 08:22:00 [id number] Family Practic e 2019-10-01 2019-10-01 Outpatient Lobito-Brock_M VFP VFP [id number] [facility] 08:22:00 08:22:00 [id number] Family Practic e 2019-10-01 2019-10-01 Outpatient Bui_Q_WAG VFP VFP [id number] [facility] 08:22:00 08:22:00 [id number] Family Practic e 2019-10-01 2019-10-01 Porchae B VFP [place] - [id number] [facility] 00:00:00 00:00:00 Rodrigo [facility] Famil y PEDIATRIC NURSE: 6122 Medical - Pract [place] [address], ([facility]) [place] [address] , Ph. 2019-09-21 2019-09-21 Outpatient Bui_Q_WAG VFP VFP [id number] [facility] 12:55:00 12:55:00 [id number] Family Practic e 2019-09-21 2019-09-21 Outpatient Robin-Gor_M VFP VFP [id number] [facility] 12:55:00 12:55:00 [id number] Family Practic e 2019-09-03 2019-09-03 Outpatient Bui_Q_WAG VFP VFP [id number] [facility] 11:32:00 11:32:00 [id number] Family Practic e 2019-09-03 2019-09-03 Outpatient Robin-Gor_M VFP VFP [id number] [facility] 11:32:00 11:32:00 [id number] Family Practic e 2019-09-03 2019-09-03 Outpatient Robin-Gor_M VFP VFP [id number] [facility] 11:32:00 11:32:00 [id number] Family Practic e 2019-09-03 2019-09-03 Henrry Cochran VFP [place] - [id number] [facility] 00:00:00 00:00:00 MD Reyes: [facility] Famil y [facility] [facility] [place] [address], ([facility]) [place] [address] , Ph. 2019-08-16 2019-08-16 Outpatient Robin-Gor_M VFP VFP [id number] [facility] 08:34:00 08:34:00 [id number] Family Practic e 2019-08-16 2019-08-16 Outpatient Robin-Gor_M VFP VFP [id number] [place] 08:34:00 08:34:00 [id number] Family Practic e 2019-08-16 2019-08-16 Outpatient Robin-Gor_M VFP VFP [id number] [facility] 08:34:00 08:34:00 [id number] Family Practic e 2019-08-16 2019-08-16 Outpatient Robin-Gor_M VFP VFP [id number] [place] 08:34:00 08:34:00 [id number] Family Practic e 2019-08-06 2019-08-06 Outpatient Bui_Q_WAG VFP VFP [id number] [facility] 10:14:00 10:14:00 [id number] Family Practic e 2019-08-06 2019-08-06 Henrry Cochran VFP [place] - [id number] [facility] 00:00:00 00:00:00 MD Reyes: [facility] Famil y 6122 Medical - Practi [address] [address] , Ph. 2019-08-03 2019-08-03 Outpatient Bui_Q_WAG VFP VFP [id number] 2- [facility] 10:19:00 10:19:00 [id number] Family Practic e 2019-05-24 2019-05-24 Outpatient Robin-Gor_M VFP VFP [id number] - [place] 09:51:00 09:51:00 [id number] Family Practic e 2019-05-24 2019-05-24 Outpatient Robin-Gor_M VFP VFP [id number] [facility] 09:51:00 09:51:00 [id number] Family Practic e 2019-05-24 2019-05-24 Outpatient Robin-Gor_M VFP VFP [id number] - [facility] 09:51:00 09:51:00 [id number] Family Practic e 2019-05-14 2019-05-14 Outpatient Bui_Q_WAG VFP VFP [id number] - [facility] 10:21:00 10:21:00 [id number] Family Practic e 2019-05-14 2019-05-14 Henrry Cochran VFP [place] - [id number] [facility] 00:00:00 00:00:00 MD Reyes: [facility] Famil y [address] Medical - [address] [address] , Ph. 2019-04-23 2019-04-23 Outpatient Bui_Q_WAG VFP VFP [id number] - [facility] 12:20:00 12:20:00 [id number] Family Practic e 2019-04-23 2019-04-23 Outpatient Bui_Q_WAG VFP VFP [id number] - [facility] 12:20:00 12:20:00 [id number] Family Practic e 2019-03-27 2019-03-27 Outpatient Robin-Gor_M VFP VFP [id number] [facility] 01:57:00 01:57:00 [id number] Family Practic e 2019-03-27 2019-03-27 Outpatient Lobito-Brock_M VFP VFP [id number] [place] 01:57:00 01:57:00 [id number] Family Practic e 2019-03-27 2019-03-27 Outpatient Bui_Q_WAG VFP VFP [id number] [place] 01:57:00 01:57:00 [id number] Family Practic e 2019-03-24 2019-03-24 Outpatient Lobito-Brock_M_ VFP VFP [id number] [place] 04:15:00 04:15:00 [facility] [id number] Family Practic e 2019-03-24 2019-03-24 Henrry Cochran VFP [place] - [id number] [place] 00:00:00 00:00:00 MD Reyes: [facility] Famil y 6[address] [facility] [place] [address], ([facility]) [place] [address] , Ph. 2019-03-16 2019-03-16 Outpatient Lobito-Brock_M VFP VFP [id number] [facility] 04:19:00 04:19:00 [id number] Family Practic e 2019-03-16 2019-03-16 Outpatient Lobito-Brock_M VFP VFP [id number] [facility] 04:19:00 04:19:00 [id number] Family Practic e Results Test Description Test Time Test Comments Results Result Comments Source rapid influenza virus A + B and SARS CoV + SARS CoV 2 Ag panel, 2021-01-09 16:02:00 [place], upper respiratory specimen Test Item Value Reference Range Interpretation Comme nts Influenza A (test code = Influenza A) Presumptive Negative Influenza B (test code = Influenza B) Presumptive Negative SARS-CoV-2 Antigen (test code = SARS-CoV-2 Antigen) [facility] IgA Ab [Presence] in Serum or Plasma by [id number] 07:33:00 Test Item Value Reference Range Interpretation Comments sars-cov-2 IgG antibody (test code = negative sars-cov-2 IgG antibody) [facility]
[2021-09-19 18:59] LABS: Absolute Lymphocytes (CBC) 3.3 K/uL (0.7-4.9); Hematocrit 47.9 % (36.0-45.0); Lymphocytes % 32.2 % (15.3-44.8); MCV 87.8 fL (80-100); MPV 8.7 fL (7.6-11.3); RBC Red Blood Cell Count 5.45 M/uL (3.86-4.86)
[2021-09-19] MEDS ORDERED: NA CHLORIDE 0.9% 1,000 ML ONE (19:02)
[2021-09-19] MEDS ORDERED: ONDANSETRON 4 MG/2 ML VIAL ONE (19:02)
[2021-09-19] MEDS ORDERED: MORPHINE 4 MG/ML SYR ONE ×2 (19:02→20:58)
[2021-09-19 19:15] LABS: Albumin 4.5 g/dL (3.4-5.0); Bilirubin Total 1.4 mg/dL (0.2-1.0); Potassium 3.9 mmol/L (3.5-5.1); Protein, Total 8.5 g/dL (6.4-8.2)
[2021-09-19 19:25] LABS: Urine Blood Trace-intact (Negative); Urine Glucose Trace (Negative); Urine Protein 2+ (Negative); Urine Specific Gravity >=1.030 (1.005-1.030)
[2021-09-19 19:46] LABS: Urine Bacteria <20 /HPF (<20); Urine Mucus Slight /HPF (None Seen); Urine RBC <5 /HPF (None Seen)
--- NOTE | 2021-09-19 21:37 | RAD REPORT ---
EXAM DESCRIPTION: CT - Abdomen Pelvis W Contrast - 09/19/2021 8:28 pm CLINICAL HISTORY: right flank pain COMPARISON: No comparisonsStone Protocol dated 09/15/2021 TECHNIQUE: Biphasic, helical CT imaging of the abdomen and pelvis was performed following 100 ml non -ionic IV contrast. No oral contrast administered. All CT scans are performed using dose optimization technique as appropriate and may include automated exposure control or mA/KV adjustment according to patient size. FINDINGS: No suspicious findings in the lung bases. No focal liver lesions are identified. Left lobe is relatively prominent relative the right. There is a subtle nodularity to the liver capsule. No portal vein abnormality seen. Cirrhosis or hepatic pare nchymal disease would be a consideration but needs correlation with additional history and laboratory findings. Pancreas and spleen show no suspicious findings. Gallbladder and biliary tree are also wit hout suspicious finding. Symmetric renal function is seen with no hydronephrosis or suspicious renal mass. No pyelonephritis o r acute parenchymal process. No bladder abnormalities. No adrenal abnormalities. Uterus is absent. Ov riaz are absent or atrophic. No dilated bowel loops or bowel wall thickening. Retrocecal appendix is normal. Mild diverticulosis s een without diverticulitis. No free air, free fluid or inflammatory stranding. No hernia, mass or bu lky lymphadenopathy. No suspicious bony findings. IMPRESSION: Contrast enhanced CT abdomen and pelvis showing no acute or emergent finding. Liver findings can be seen with cirrhosis or diffuse hepatic parenchymal disease. No focal liver lesi ons are present. Correlation is needed with any supporting clinical or laboratory findings.
--- NOTE | 2021-09-19 23:12 | EDPHYS ---
Physician Documentation [facility] Name: Meron Daly Age: 70 yrs Sex: Female : 1950 Arrival Date: 09/19/2021 Time: 15:30 Bed 15 Private MD: ED Physician Francisco Mosqueda HPI: 09/19 18:37 This 70 yrs old Female presents to ER via EMS with complaints of Right flank pm1 pain. 18:37 The patient complains of pain in the Right hip with radiation to right lower abdomen pm1 during the day and right flank during the night. Onset: The symptoms/episode began/occurred 10 day(s) ago. Modifying factors: The symptoms are alleviated by nothing. the symptoms are aggravated by nothing. Associated signs and symptoms: Pertinent negatives: diarrhea, dysuria, fever, urinary frequency, nausea, vomiting. Severity of pain: in the emergency department the pain is unchanged. The patient has been recently seen at the [facility] Emergency Department, for similar complaints labs were performed, CT scan was performed, was given a prescription for antibiotics, Patient seen 4 days ago for the same complaints and reports no improvement. Historical: - Allergies: 15:39 Sulfa (Sulfonamide Antibiotics); hb - Home Meds: 15:39 Cymbalta 30 mg Oral cpDR 1 cap once daily [Active]; hb - PMHx: 15:39 depressive disorder; GERD; hb - PSHx: 15:39 section; Total abdominal hysterectomy; tubal ligation; hb - Immunization history:: Adult Immunizations up to date. - Social history:: Smoking status: Patient denies any tobacco usage or history of. ROS: 18:37 Constitutional: Negative for fever, chills, and weight loss, Cardiovascular: Negative pm1 for chest pain, palpitations, and edema, Respiratory: Negative for shortness of breath, cough, wheezing, and pleuritic chest pain. 18:37 Skin: Negative for injury, rash, and discoloration. 18:37 Neuro: Negative for headache, weakness, numbness, tingling, and seizure. 18:37 Abdomen/GI: Positive for abdominal pain, of the right lower quadrant. 18:37 Back: Positive for flank pain, on the right. 18:37 MS/extremity: Positive for pain, of the Right hip. 18:37 All other systems are negative. Exam: 18:37 Constitutional: This is a well developed, well nourished patient who is awake, alert, pm1 and in no acute distress. Head/Face: Normocephalic, atraumatic. 18:37 Skin: Warm, dry with normal turgor. Normal color with no rashes, no lesions, and no evidence of cellulitis. MS/ Extremity: Pulses equal, no cyanosis. Neurovascular intact. Full, normal range of motion. 18:37 Eyes: Exam is negative for acute changes, Extraocular movements: no acute changes, Conjunctiva: no acute changes, Corneas: no acute changes. 18:37 ENT: Exam is negative for acute changes, Mouth: no acute changes, Lips: normal, moist, Oral mucosa: normal, pink and intact, moist. 18:37 Cardiovascular: Exam negative for acute changes, Rate: normal, Rhythm: regular, Pulses: no pulse deficits are appreciated. 18:37 Respiratory: Exam negative for acute changes, respiratory distress, shortness of breath. 18:37 Abdomen/GI: Exam negative for acute changes, Palpation: abdomen is soft and non-tender, in all quadrants. 18:37 Back: Exam negative for acute changes, pain, is absent. 18:37 Musculoskeletal/extremity: Exam is negative for acute changes, Extremities: all appear grossly normal, with no appreciated pain with palpation, ROM: no acute changes. 18:37 Neuro: Exam negative for acute changes, Orientation: is normal, Mentation: is normal, Motor: is normal, moves all fours. Vital Signs: 15:36 BP 148 / 72; Pulse 85; Resp 16; Temp 98.5; Pulse Ox 97% on R/A; Weight 72.57 kg; Height hb 5 ft. (152.40 cm); Pain 10/10; 18:40 BP 158 / 72; Pulse 79; Resp 16; Pulse Ox 97% on R/A; vg1 19:40 Pain 6/10; ke1 20:06 BP 146 / 68; Pulse 74; Resp 18; Pulse Ox 94% on R/A; Pain 2/10; ke1 20:53 BP 168 / 72; Pulse 75; Resp 12; Pulse Ox 92% ; Pain 7/10; ke1 15:36 Body Mass Index 31.25 (72.57 kg, 152.40 cm) hb MDM: 18:22 Patient medically screened. mary 18:38 Data reviewed: vital signs. Data interpreted: Pulse oximetry: on room air is 97 %. pm1 Interpretation: normal. 23:07 Counseling: I had a detailed discussion with the patient and/or guardian regarding: the pm1 historical points, exam findings, and any diagnostic results supporting the discharge/admit diagnosis, lab results, radiology results, the need for outpatient follow up, to return to the emergency department if symptoms worsen or persist or if there are any questions or concerns that arise at home. 23:12 ED course: Patient requesting admission for pain control after discussing labs and pm1 radiology findings with patient. Patient without any signs of pyelonephritis or cystitis present. Urine dip shows nitrites positive however urine micro is negative. Patient with work-up 4 days ago with negative urine micro and did not reflex to culture. I will change patient's medication to cephalosporin instead of Cipro and will get a urine culture to verify urine micro results. Discussed case with Dr. Christianson and patient does not meet criteria for admission. 09/20 00:52 ED course: Patient asked for fentanyl patch and also prescription for hydrocodone. pm1 Informed patient that I am unable to provide that for her but will give her hydrocodone before she leaves for a pain relief medication that will last longer. Patient reports no improvement with Tylenol 3 therefore well provide prescription for tramadol. 09/19 18:37 Order name: CBC with Diff; Complete Time: 19:05 pm1 09/19 18:37 Order name: CMP; Complete Time: 19:20 pm1 09/19 18:37 Order name: Lipase; Complete Time: 19:20 pm1 09/19 18:37 Order name: Urine Microscopic Only; Complete Time: 19:54 pm1 09/19 19:26 Order name: Urine Dipstick-Ancillary; Complete Time: 19:32 EDMS 09/19 18:37 Order name: CT Abd/Pelvis - IV Contrast Only pm1 09/19 18:41 Order name: Abdomen ; Complete Time: 21:52 EDMS 09/19 18:37 Order name: IV Saline Lock; Complete Time: 18:46 pm1 09/19 18:37 Order name: Labs collected and sent; Complete Time: 18:46 pm1 09/19 18:37 Order name: Urine Dipstick-Ancillary (obtain specimen); Complete Time: 19:53 pm1 Administered Medications: 09/19 18:57 Drug: NS 0.9% 1000 ml Route: IV; Rate: 1 bolus; Site: right antecubital; vg1 09/20 01:03 Follow up: IV Status: Completed infusion kd3 09/19 18:58 Drug: Zofran (Ondansetron) 4 mg Route: IVP; Site: right antecubital; vg1 19:41 Follow up: Response: Marked relief of symptoms ke1 19:01 Drug: morphine 4 mg Route: IVP; Infused Over: 4 mins; Site: right antecubital; vg1 19:40 Follow up: Pain 6/10 Adult; Response: Pain is decreased ke1 20:55 Drug: morphine 4 mg Route: IVP; Infused Over: 4 mins; Site: right antecubital; ke1 09/20 01:02 Follow up: Response: No adverse reaction 3 09/19 23:53 Drug: Rocephin (cefTRIAXone) 1 grams Route: IV; Rate: calculated rate; Site: right ke1 antecubital; 09/20 01:02 Follow up: IV Status: Completed infusion kd3 00:01 Drug: fentaNYL (PF) 25 mcg Route: IVP; Site: left antecubital; ke1 01:03 Follow up: Response: No adverse reaction kd3 01:02 Drug: HYDROcodone-acetaminophen 5 mg-325 mg 1 tabs Route: PO; kd3 01:03 Follow up: Response: No adverse reaction kd3 Disposition Summary: 09/19/21 23:11 Discharge Ordered Location: Home pm1 Problem: new pm1 Symptoms: have improved pm1 Condition: Stable pm1 Diagnosis - UTI/ Urinary tract infection, site not specified pm1 Followup: pm1 - With: Emergency Department - When: As needed - Reason: Worsening of condition Followup: pm1 - With: Private Physician - When: 2 - 3 days - Reason: Recheck today's complaints, Continuance of care, Re-evaluation by your physician Discharge Instructions: - Discharge Summary Sheet pm1 - Urinary Tract Infection, Adult pm1 Forms: - Medication Reconciliation Form pm1 - Thank You Letter pm1 - Antibiotic Education pm1 - Prescription Opioid Use pm1 Prescriptions: - cefpodoxime 200 mg Oral Tablet - take 1 tablet by ORAL route every 12 hours for 10 days with food; 20 tablet; pm1 Refills: 0, Product Selection Permitted - Tramadol 50 mg Oral Tablet - take 1 tablet by ORAL route every 8 hours as needed; 12 tablet; Refills: 0, pm1 Product Selection Permitted Signatures: Dispatcher [employer] Francisco Lopez, Jared Velazquez MD, cha, [employer] pm1 Terri Herrera, RN RN Lana Molina RN RN vg1 Heaven Evangelista RN RN kd3 Ricky Gautam RN RN ke1
--- NOTE | 2021-09-19 23:12 | ER ---
Nurse's Notes [facility] Name: Meron Daly Age: 70 yrs Sex: Female : 1950 Arrival Date: 09/19/2021 Time: 15:30 Bed 15 Private MD: Diagnosis: UTI/ Urinary tract infection, site not specified Presentation: 09/19 15:36 Chief complaint: EMS states: Right hip pain x 5 days. Recently seen in ED for same s/s, hb on ABX for UTI, reports pain is worse. Coronavirus screen: At this time, the client does not indicate any symptoms associated with coronavirus-19. Ebola Screen: No symptoms or risks identified at this time. Initial Sepsis Screen: Does the patient meet any 2 criteria? No. Patient's initial sepsis screen is negative. Does the patient have a suspected source of infection? No. Patient's initial sepsis screen is negative. Risk Assessment: Do you want to hurt yourself or someone else? Patient reports no desire to harm self or others. Onset of symptoms was September 14, 2021. 15:36 Method Of Arrival: EMS: [facility] hb 15:36 Acuity: MOO 3 hb Triage Assessment: 15:39 General: Appears in no apparent distress. Behavior is calm, cooperative. Pain: Pain hb currently is 10 out of 10 on a pain scale. Neuro: Level of Consciousness is awake, alert, obeys commands, Oriented to person, place, time, situation. Cardiovascular: Thorax. Respiratory: Respiratory effort is even, unlabored, Respiratory pattern is regular, symmetrical. Historical: - Allergies: 15:39 Sulfa (Sulfonamide Antibiotics); hb - Home Meds: 15:39 Cymbalta 30 mg Oral cpDR 1 cap once daily [Active]; hb - PMHx: 15:39 depressive disorder; GERD; hb - PSHx: 15:39 section; Total abdominal hysterectomy; tubal ligation; hb - Immunization history:: Adult Immunizations up to date. - Social history:: Smoking status: Patient denies any tobacco usage or history of. Screenin:40 Abuse screen: Denies threats or abuse. Nutritional screening: No deficits noted. vg1 Tuberculosis screening: No symptoms or risk factors identified. Fall Risk No fall in past 12 months (0 pts). No secondary diagnosis (0 pts). IV access (20 points). Ambulatory Aid- None/Bed Rest/Nurse Assist (0 pts). Gait- Normal/Bed Rest/Wheelchair (0 pts) Mental Status- Oriented to own ability (0 pts). Total Vee Fall Scale indicates No Risk (0-24 pts). Assessment: 18:40 Reassessment:. General: Appears in no apparent distress. uncomfortable, Behavior is vg1 cooperative, crying. Pain: Complains of pain in posterior aspect of right lateral abdomen and right lower quadrant Pain currently is 10 out of 10 on a pain scale. Pain began x 10 days. Neuro: Level of Consciousness is awake, alert, obeys commands, Oriented to person, place, time, situation. Cardiovascular: Patient's skin is warm and dry. Respiratory: Airway is patent Respiratory effort is even, unlabored. GI: Abdomen is round non-distended, Reports nausea, vomiting. : Denies burning with urination, pain with urination. EENT: No signs and/or symptoms were reported regarding the EENT system. Derm: Skin is intact, Skin is pink, warm \T\ dry. 19:40 Reassessment: Patient appears in no apparent distress at this time. Patient and/or ke1 family updated on plan of care and expected duration. Pain level reassessed. Patient is alert, oriented x 3, equal unlabored respirations, skin warm/dry/pink. Patient states symptoms have improved. 20:52 Pain: Complains of pain in abdomen and right lower quadrant and posterior aspect of ke1 right lateral abdomen Pain currently is 7 out of 10 on a pain scale. Vital Signs: 15:36 BP 148 / 72; Pulse 85; Resp 16; Temp 98.5; Pulse Ox 97% on R/A; Weight 72.57 kg; Height hb 5 ft. (152.40 cm); Pain 10/10; 18:40 BP 158 / 72; Pulse 79; Resp 16; Pulse Ox 97% on R/A; vg1 19:40 Pain 6/10; ke1 20:06 BP 146 / 68; Pulse 74; Resp 18; Pulse Ox 94% on R/A; Pain 2/10; ke1 20:53 BP 168 / 72; Pulse 75; Resp 12; Pulse Ox 92% ; Pain 7/10; ke1 15:36 Body Mass Index 31.25 (72.57 kg, 152.40 cm) hb ED Course: 15:30 Patient arrived in ED. hb 15:36 Arm band placed on. hb 15:38 Triage completed. hb 18:20 Jared Wellington NP is PHCP. pm1 18:20 Francisco Mosqueda MD is Attending Physician. pm1 18:40 Patient has correct armband on for positive identification. Bed in low position. Call vg1 light in reach. Side rails up X 1. 18:40 No provider procedures requiring assistance completed. Initial lab(s) drawn, by mn, vg1 sent to lab. Inserted saline lock: 20 gauge in right antecubital area, using aseptic technique. Blood collected. 19:39 Ricky Gautam, KAITLIN is Primary Nurse. ke1 20:30 Abdomen In Process Unspecified. EDMS Administered Medications: 18:57 Drug: NS 0.9% 1000 ml Route: IV; Rate: 1 bolus; Site: right antecubital; vg1 09/20 01:03 Follow up: IV Status: Completed infusion 3 09/19 18:58 Drug: Zofran (Ondansetron) 4 mg Route: IVP; Site: right antecubital; vg1 19:41 Follow up: Response: Marked relief of symptoms ke1 19:01 Drug: morphine 4 mg Route: IVP; Infused Over: 4 mins; Site: right antecubital; vg1 19:40 Follow up: Pain 6/10 Adult; Response: Pain is decreased ke1 20:55 Drug: morphine 4 mg Route: IVP; Infused Over: 4 mins; Site: right antecubital; ke1 09/20 01:02 Follow up: Response: No adverse reaction 3 09/19 23:53 Drug: Rocephin (cefTRIAXone) 1 grams Route: IV; Rate: calculated rate; Site: right 1 antecubital; 09/20 01:02 Follow up: IV Status: Completed infusion kd3 00:01 Drug: fentaNYL (PF) 25 mcg Route: IVP; Site: left antecubital; ke1 01:03 Follow up: Response: No adverse reaction kd3 01:02 Drug: HYDROcodone-acetaminophen 5 mg-325 mg 1 tabs Route: PO; kd3 01:03 Follow up: Response: No adverse reaction kd3 Medication: 09/19 18:40 VIS not applicable for this client. vg1 Outcome: 23:11 Discharge ordered by . pm1 09/20 01:03 Patient left the ED. kd3 Signatures: Dispatcher [employer] EDMS Jared Wellington, [employer] ENGINEER pm1 Terri Herrera, RN RN Lana Molina RN KAITLIN vg1 Heaven Evangelista RN RN kd3 Ricky Gautam RN RN ke1
[2021-09-19] MEDS ORDERED: CEFTRIAXONE 1000 MG/VIAL ONE (23:31)
[2021-09-20] MEDS ORDERED: FENTANYL CITR 100 MCG/2 ML ONE (00:07)
[2021-09-20] MEDS ORDERED: HYDROCODONE/APAP 5/325 MG TAB ONE (01:02)
[2021-09-20 01:08] VITALS: TEMP 98.5
[2021-09-20 01:13] VITALS: BP 168/72; O2SAT 92
== END 2021-09-20 01:03 | disposition home or self-care (01) ==
LOC: ER 15:04
DX: N39.0 Urinary tract infection, site not specified (principal); R10.31 Right lower quadrant pain; M25.551 Pain in right hip; Z88.2 Allergy status to sulfonamides
CPT/HCPCS: 85025; 36415; 83690; 80053; 74177; 99284; Q9967; J7030; J2405; 81003; 81015

== ENCOUNTER → 2023-02-22 | Emergency (ER) | payer OTHER ==
[~2023-02-22] MED LIST: MORPHINE 4 MG/ML SYR ONE; NA CHLORIDE 0.9% 1,000 ML ONE; ONDANSETRON 4 MG/2 ML VIAL ONE
[2023-02-22 15:28] LABS: Absolute Lymphocytes (CBC) 3.6 K/uL (0.7-4.9); Hematocrit 42.9 % (36.0-45.0); Lymphocytes % 40.6 % (15.3-44.8); MCV 88.6 fL (80-100); MPV 8.8 fL (7.6-11.3); Platelets 161 thou/uL (152-406); RBC Red Blood Cell Count 4.84 M/uL (3.86-4.86)
[2023-02-22 15:43] LABS: Albumin 3.7 g/dL (3.4-5.0); Bilirubin Total 0.9 mg/dL (0.2-1.0); Potassium 3.9 mEq/L (3.5-5.1); Protein, Total 7.4 g/dL (6.4-8.2)
--- NOTE | 2023-02-22 16:23 | RAD REPORT ---
EXAM DESCRIPTION: CT - Abdomen Pelvis W Contrast - 02/22/2023 3:27 pm CLINICAL HISTORY: flank pain COMPARISON: Abdomen Pelvis W Contrast dated 02/10/2023; Abdomen Pelvis W Contrast dated 2 TECHNIQUE: Thin cut axial CT imaging of the abdomen and pelvis was performed following intravenous a dministration of 100 mL Isovue 300. Multiplanar reformats were generated and reviewed. All CT scans are performed using dose optimization technique as appropriate and may include automated exposure control or mA/KV adjustment according to patient size. FINDINGS: No suspicious findings in the lung bases. The liver shows mildly nodular contour and relative left lobe hypertrophy, suggesting early cirrhosis . Adrenal glands, spleen, and pancreas show no suspicious findings. Gallbladder and biliary tree are also without suspicious finding. Symmetric renal function is seen with no hydronephrosis or suspicious renal mass. Left ureteral stent in place. 6 mm left renal pelvis calculus. No dilated bowel loops or bowel wall thickening. No free air, free fluid or inflammatory stranding. N o hernia, mass or bulky lymphadenopathy. The urinary bladder is suboptimally distended, without signi ficant finding. No suspicious bony findings. IMPRESSION: Satisfactory positioning of left ureteral stent. 6 mm left renal pelvis calculus is note d. Other findings including hepatic morphologic changes suggestive of early cirrhosis, and colonic diver ticulosis.
[2023-02-22 17:19] LABS: Urine Bacteria None Seen /HPF (<20); Urine Bilirubin NEGATIVE (Negative); Urine Blood 3+ (OVER) (Negative); Urine Clarity Clear (Clear); Urine Color Colorless (Yellow); Urine Crystals Unidentified Few /HPF (None Seen); Urine Glucose NEGATIVE (Negative); Urine Mucus Slight /HPF (None Seen); Urine Protein NEGATIVE (Negative); Urine RBC >50 /HPF (None Seen); Urine Urobilinogen Normal (Normal); Urine pH 6.5 (5.0-7.0)
[2023-02-22 17:20] LABS: Specific Gravity > 1.030 (1.005-1.030)
--- NOTE | 2023-02-22 17:39 | EDPHYS ---
Physician Documentation [facility] Name: Meron Daly Age: 72 yrs Sex: Female : 1950 Arrival Date: 02/22/2023 Time: 13:19 Bed 12 Private MD: ED Physician Jethro Wong HPI: 02/22 14:55 This 72 yrs old Female presents to ER via Ambulatory with complaints of Pain ec2 With Urination, Urinary Problem. 14:55 Patient arrives today for evaluation of lower abdominal discomfort. Patient states that ec2 she was recently diagnosed with ureteral stone. External records were reviewed by myself that showed left-sided 8 mm UVJ stone. Patient reports that she has some burning with urination. Patient reports no fevers or chills, no cough and cold symptoms, no nausea or vomiting.. Historical: - Allergies: 13:35 Sulfa (Sulfonamide Antibiotics); hb - Home Meds: 13:35 Cymbalta 30 mg Oral cpDR 1 cap once daily [Active]; hb - PMHx: 13:35 Anxiety; depressive disorder; GERD; hb - PSHx: 13:35 Total abdominal hysterectomy; section; tubal ligation; hb - Immunization history:: Adult Immunizations up to date. - Social history:: Smoking status: Patient denies any tobacco usage or history of. ROS: 14:55 Constitutional: as per hpi ec2 Exam: 14:55 Constitutional: GEN: NAD Head: atraumatic Eyes: EOMI Ears: External ears are ec2 normal. CV: regular rate LUNGS: no respiratory distress ABD: non-distended, soft, minimally tender in the lower abdomen, no guarding, nonrigid, negative flanks bilaterally. SKIN: no evidence of rashes MSK: no evidence of trauma NEURO: moves all extremities equally Vital Signs: 13:32 BP 130 / 83; Pulse 82; Resp 16; Temp 98.1; Pulse Ox 99% on R/A; Weight 68.04 kg; Height hb 5 ft. 0 in. ; Pain 10/10; 17:01 BP 141 / 85; Pulse 62; Resp 15; Pulse Ox 99% ; ko1 13:32 Body Mass Index 29.29 (68.04 kg, 152.4 cm) hb 13:32 Pain Scale: Adult hb MDM: 13:54 Patient medically screened. ec2 14:55 Data reviewed: vital signs. ED course: Patient arrives today for evaluation of lower ec2 abdominal pain. Examination remarkable for abdominal findings as noted above. Will obtain lab work, CT imaging, urine studies, treat the patient's pain and reassess the patient. Currently considering UTI, lower suspicion for ureteral stone, lower suspicion for pyelonephritis given the lack of CVA TTP.. 15:43 ED course: CBC is reassuring. . ec2 16:09 ED course: Metabolic profile with appropriate renal function.. ec2 16:34 ED course: CT imaging shows no acute intra-abdominal process. . ec2 17:34 ED course: Urine is slightly infectious appearing. Will discharge with antibiotics. ec2 Patient discharged home, return precautions given. . 17:39 ED course: Actually patient is currently on antibiotics, will defer changing her ec2 antibiotic regimen at this time.. 02/22 15:30 Order name: CBC with Automated Diff; Complete Time: 15:43 EDMS 02/22 15:43 Order name: Comprehensive Metabolic Panel; Complete Time: 16:09 EDMS 02/22 17:20 Order name: Urinalysis W/Microscopic; Complete Time: 17:34 EDMS 02/22 14:20 Order name: CT Abd/Pelvis - Without Contrast ec2 02/22 16:24 Order name: CT; Complete Time: 16:34 EDMS Administered Medications: 16:03 Drug: NS 0.9% IV 1000 ml IV at 1 bolus Per protocol; 1000 mL bolus Route: IV; Rate: 1 ko1 bolus; Site: left forearm; 16:03 Drug: morphine IVP or IV 4 mg IVP once over 4 mins Route: IVP; Infused Over: 4 mins; ko1 Site: right forearm; 16:03 Drug: Ondansetron IVP 4 mg IVP once; over 2 minutes Route: IVP; Site: right forearm; ko1 Disposition Summary: 02/22/23 17:39 Discharge Ordered Notes: Location: Home ec2 Condition: Stable ec2 Diagnosis - Dysuria ec2 Followup: ec2 - With: Private Physician - When: - Reason: Recheck today's complaints Discharge Instructions: - Discharge Summary Sheet ec2 - Dysuria ec2 Forms: - Medication Reconciliation Form ec2 - Thank You Letter ec2 - Antibiotic Education ec2 - Prescription Opioid Use ec2 - Patient Portal Instructions ec2 - Leadership Thank You Letter ec2 Signatures: Dispatcher [employer] Terri Garg RN RN hb Oliver, Kathy, RN RN ko1 Jethro Wong MD MD ec2 Corrections: (The following items were deleted from the chart) 16:59 16:50 Carlie colby. ec2 ko1
--- NOTE | 2023-02-22 17:39 | ER ---
Nurse's Notes [facility] Name: Meron Daly Age: 72 yrs Sex: Female : 1950 Arrival Date: 02/22/2023 Time: 13:19 Bed 12 Private MD: Diagnosis: Dysuria Presentation: 02/22 13:32 Chief complaint: Difficulty urinating and pain with urination x 1 week, pain became hb worse today. Recently inpatient [facility] for 8 mm kidney stone and stent placement. Coronavirus screen: At this time, the client does not indicate any symptoms associated with coronavirus-19. Ebola Screen: No symptoms or risks identified at this time. Initial Sepsis Screen: Does the patient meet any 2 criteria? No. Patient's initial sepsis screen is negative. Does the patient have a suspected source of infection? No. Patient's initial sepsis screen is negative. Risk Assessment: Do you want to hurt yourself or someone else? Patient reports no desire to harm self or others. Onset of symptoms was February 12, 2023. 13:32 Method Of Arrival: Ambulatory hb 13:32 Acuity: MOO 3 hb Historical: - Allergies: 13:35 Sulfa (Sulfonamide Antibiotics); hb - Home Meds: 13:35 Cymbalta 30 mg Oral cpDR 1 cap once daily [Active]; hb - PMHx: 13:35 Anxiety; depressive disorder; GERD; hb - PSHx: 13:35 Total abdominal hysterectomy; section; tubal ligation; hb - Immunization history:: Adult Immunizations up to date. - Social history:: Smoking status: Patient denies any tobacco usage or history of. Screenin:01 [facility] ED Fall Risk Assessment (Adult) History of falling in the last 3 months, ko1 including since admission No falls in past 3 months (0 pts) Confusion or Disorientation No (0 pts) Intoxicated or Sedated No (0 pts) Impaired Gait No (0 pts) Mobility Assist Device Used No (0 pt) Altered Elimination No (0 pt) Score/Fall Risk Level 0 - 2 = Low Risk Oriented to surroundings, Maintained a safe environment, Educated pt \T\ family on fall prevention, incl call for assistance when getting out of bed, Assessed \T\ reinforced patient's understanding of fall precautions, Provided non-skid footwear, Hourly rounding (assess needs \T\ fall precautionary measures) done, Used ambulatory aids as needed (educated on \T\ assisted with), Used gait belt as appropriate. Abuse screen: Denies threats or abuse. Denies injuries from another. Nutritional screening: No deficits noted. Tuberculosis screening: No symptoms or risk factors identified. Assessment: 16:00 General: Appears in no apparent distress. uncomfortable, Behavior is calm, cooperative, ko1 appropriate for age. Pain: Complains of pain in pelvis. Neuro: No deficits noted. Cardiovascular: No deficits noted. Respiratory: No deficits noted. GI: No deficits noted. : Reports pain with urination. EENT: No deficits noted. Derm: No deficits noted. Musculoskeletal: No deficits noted. Vital Signs: 13:32 BP 130 / 83; Pulse 82; Resp 16; Temp 98.1; Pulse Ox 99% on R/A; Weight 68.04 kg; Height hb 5 ft. 0 in. ; Pain 10/10; 17:01 BP 141 / 85; Pulse 62; Resp 15; Pulse Ox 99% ; ko1 13:32 Body Mass Index 29.29 (68.04 kg, 152.4 cm) hb 13:32 Pain Scale: Adult hb ED Course: 13:22 Patient arrived in ED. ts1 13:32 Jethro Wong MD is Attending Physician. ec2 13:35 Triage completed. hb 13:36 Arm band placed on. hb 14:56 Beverly Rivas, KAITLIN is Primary Nurse. ko1 16:00 Inserted saline lock: 22 gauge in right forearm, using aseptic technique. Blood ko1 collected. 17:01 Patient has correct armband on for positive identification. Bed in low position. Call ko1 light in reach. Side rails up X 1. Provided Education on: na. Pulse ox on. NIBP on. Door closed. Noise minimized. Lights dimmed. Warm blanket given. 17:01 No provider procedures requiring assistance completed. ko1 18:20 IV discontinued, intact, bleeding controlled, No redness/swelling at site. Pressure iw dressing applied. Administered Medications: 16:03 Drug: NS 0.9% IV 1000 ml IV at 1 bolus Per protocol; 1000 mL bolus Route: IV; Rate: 1 ko1 bolus; Site: left forearm; 16:03 Drug: morphine IVP or IV 4 mg IVP once over 4 mins Route: IVP; Infused Over: 4 mins; ko1 Site: right forearm; 16:03 Drug: Ondansetron IVP 4 mg IVP once; over 2 minutes Route: IVP; Site: right forearm; ko1 Medication: 17:01 VIS not applicable for this client. ko1 Outcome: 17:39 Discharge ordered by . ec2 18:20 Discharged to home ambulatory, iw 18:20 Condition: good 18:20 Discharge instructions given to patient, Instructed on discharge instructions, follow up and referral plans. Demonstrated understanding of instructions, follow-up care, 18:20 Patient left the ED. iw Signatures: Batool Lares RN RN iw Terri Herrera RN RN hb Beverly Rivas RN RN ko1 Nnoa Sarkar PAS PAS ts1 Jethro Wong MD MD ec2 Corrections: (The following items were deleted from the chart) 14:21 13:32 Chief complaint: Difficulty urinating and pain with urination x 1 week, pain hb became worse today. Recently inpatient [facility] for 8 cm kidney stone and stent placement. hb 17:01 16:00 BP 141 / 85; Pulse 62bpm; Resp 15bpm; Pulse Ox 99%; ko1 ko1
[2023-02-22 18:49] VITALS: TEMP 98.1; O2SAT 99
[2023-02-22 18:57] VITALS: BP 141/85
== END ==
LOC: ER 13:19
DX: R30.0 Dysuria (principal); Z88.2 Allergy status to sulfonamides
CPT/HCPCS: 85025; 81001; 36415; 80053; 74177; 96375; 96374; 99284; Q9967; J2405; J7030

== ENCOUNTER 2024-03-21 17:11 | Emergency (ER) | payer OTHER ==
[2024-03-21] MEDS ORDERED: ACETAMINOPHEN 500 MG TAB ONE (18:04)
[2024-03-21 18:08] LABS: Specific Gravity 1.023 (1.005-1.030); Sqamous Epithelial <5 /HPF (None Seen); Urine Bacteria None Seen /HPF (<20); Urine Bilirubin NEGATIVE (Negative); Urine Blood Trace (Negative); Urine Clarity Clear (Clear); Urine Color Light-Yellow (Yellow); Urine Culture Reflex Order NOT NEEDED; Urine Glucose NEGATIVE (Negative); Urine Ketones NEGATIVE (Negative); Urine Microscopic Reflex YN ORDER UMIC; Urine Mucus Slight /HPF (None Seen); Urine Nitrite NEGATIVE (Negative); Urine Protein NEGATIVE (Negative); Urine RBC <5 /HPF (None Seen); Urine Urobilinogen Normal (Normal); Urine WBC <5 /HPF (<5)
[2024-03-21 18:14] LABS: Absolute Basophils 0.1 K/uL (0-0.5); Absolute Eosinophils 0.3 K/uL (0-0.5); Absolute Lymphocytes (CBC) 3.4 K/uL (0.7-4.9); Absolute Monocytes 0.5 K/uL (0.1-1.3); Absolute Neutrophil 4.8 K/uL (1.8-8.0); Basophils % 0.9 % (0-1.3); Eosinophils % 3.2 % (0-4.4); Hematocrit 42.7 % (36.0-45.0); Hemoglobin 15.2 g/dL (12.0-15.0); Lymphocytes % 37.3 % (15.3-44.8); MCHC 35.6 g/dL (32.0-36.0); MCV 87.2 fL (80-100); MPV 9.4 fL (7.6-11.3); Neutrophils % 52.6 % (41.7-73.7); Nucleated Red Blood Cells % 0.1 % (0-0); Platelets 151 thou/uL (152-406); Red Cell Distribution Width 13.1 % (12.1-15.2)
[2024-03-21 18:27] LABS: Albumin 3.7 g/dL (3.4-5.0); Albumin/Globulin Ratio 1.1 (1.1-1.8); Anion Gap 9.6 mEq/L (5.0-15.0); Bilirubin Total 0.6 mg/dL (0.2-1.0); Globulin 3.5 g/dL (2.3-3.5); Potassium 3.6 mEq/L (3.5-5.1); Protein, Total 7.2 g/dL (6.4-8.2)
--- NOTE | 2024-03-21 18:43 | RAD REPORT ---
EXAMINATION: CT ABDOMEN AND PELVIS WITHOUT CONTRAST CLINICAL INDICATION: Abdominal pain. Right flank pain TECHNIQUE: CT abdomen and pelvis was performed, as per department protocol. IV contrast and oral was not administered.Axial, sagittal and coronal reconstructions were obtained. One or more of the following dose reduction techniques were used: Automated exposure control, adjustment of the mA and/o r kV according to the patient size, and/or iterative reconstruction. Unless otherwise specified, incidental findings do not require dedicated imaging follow-up. [id number]. COMPARISON: 2022. FINDINGS: The lack of intravenous and oral contrast limits evaluation of solid organs, vessels and bowel. Cirrhotic liver. The spleen, pancreas, adrenals and kidneys appear grossly normal No evidence of diverticulitis Normal appendix. Small umbilical hernia. Hysterectomy. No adnexal mass IMPRESSION: No acute abnormality displayed
--- NOTE | 2024-03-21 19:01 | EDPHYS ---
Physician Documentation [facility] Name: Meron Daly Age: 73 yrs Sex: Female : 1950 Arrival Date: 03/21/2024 Time: 17:11 Bed 15 Private MD: ED Physician Rafiq Agee HPI: 03/21 19:12 This 73 yrs old Female presents to ER via Ambulatory with complaints of right rt side pain. 19:12 Patient with history of kidney stones presents to the ED with a right lower back pain rt for 2-1/2 months. States has been progressively worsening. Is usually adequately controlled with Tylenol. The patient's PCP believes that is due to constipation. The patient denies other acute complaints at this time, symptoms are moderate severity, aching nature, nonradiating, no other aggravating alleviating factors.. Historical: - Allergies: 17:27 Sulfa (Sulfonamide Antibiotics); ko1 - PMHx: 17:27 Anxiety; depressive disorder; GERD; kidney stones (tubal ligation); ko1 - PSHx: 17:27 section; Total abdominal hysterectomy; tubal ligation; kidney stones (tubal ko1 ligation); - Immunization history:: Adult Immunizations up to date. - Infectious Disease History:: Denies. - Social history:: Smoking status: Patient denies any tobacco usage or history of. - Family history:: not pertinent. ROS: 19:12 Constitutional: Negative for fever, chills, and weight loss, Cardiovascular: Negative rt for chest pain, palpitations, and edema, Respiratory: Negative for shortness of breath, cough, wheezing, and pleuritic chest pain, Abdomen/GI: Negative for abdominal pain, nausea, vomiting, diarrhea, and constipation, MS/Extremity: Negative for injury and deformity, Skin: Negative for injury, rash, and discoloration, Neuro: Negative for headache, weakness, numbness, tingling, and seizure, 19:12 Back: Positive for pain at rest, Negative for injury or acute deformity, Exam: 19:12 Constitutional: This is a well developed, well nourished patient who is awake, alert, rt and in no acute distress. Head/Face: Normocephalic, atraumatic. Chest/axilla: Normal chest wall appearance and motion. Nontender with no deformity. No lesions are appreciated. Cardiovascular: Regular rate and rhythm with a normal S1 and S2. No gallops, murmurs, or rubs. Normal PMI, no JVD. No pulse deficits. Respiratory: Lungs have equal breath sounds bilaterally, clear to auscultation and percussion. No rales, rhonchi or wheezes noted. No increased work of breathing, no retractions or nasal flaring. Abdomen/GI: Soft, non-tender, with normal bowel sounds. No distension or tympany. No guarding or rebound. No evidence of tenderness throughout. Skin: Warm, dry with normal turgor. Normal color with no rashes, no lesions, and no evidence of cellulitis. MS/ Extremity: Pulses equal, no cyanosis. Neurovascular intact. Full, normal range of motion. 19:12 Back: Mild tenderness to the right lower paraspinal region, no CVAT, Vital Signs: 17:20 BP 130 / 85; Pulse 105; Resp 17; Temp 98.5; Pulse Ox 99% ; ko1 18:00 BP 147 / 71; Pulse 94; Resp 18; Pulse Ox 97% on R/A; db 19:00 BP 137 / 83; Pulse 92; Resp 17; Temp 98; Pulse Ox 98% on R/A; Pain 0/10; rg5 19:00 Pain Scale: Adult rg5 MDM: 17:38 Medical Screening Exam initiated rt 19:12 Differential Diagnosis Kidney stone, UTI, ureterolithiasis, musculoskeletal pain. Data rt reviewed: vital signs, nurses notes, lab test result(s), radiologic studies. I considered the following discharge prescriptions or medication management in the emergency department Medications were administered in the Emergency Department. See MAR. Independent interpretation of the following test(s) in the Emergency Department CT Scan: My interpretation is No ureteral stone seen on interpretation of CT scan images. Care significantly affected by the following chronic conditions: Kidney stone. Counseling: I had a detailed discussion with the patient and/or guardian regarding the historical points, exam findings, and any diagnostic results supporting the discharge/admit diagnosis, lab results, radiology results, the need for outpatient follow up, to return to the emergency department if symptoms worsen or persist or if there are any questions or concerns that arise at home. Response to treatment: the patient's symptoms have markedly improved after treatment. 03/21 17:48 Order name: CBC with Diff; Complete Time: 18:29 rt 03/21 17:48 Order name: CMP; Complete Time: 18:29 rt 03/21 17:48 Order name: Lipase; Complete Time: 18:29 rt 03/21 17:48 Order name: Urinalysis w/ reflexes; Complete Time: 18:29 rt 03/21 17:48 Order name: CT Abd/Pelvis - Without Contrast; Complete Time: 18:52 rt 03/21 17:48 Order name: IV Saline Lock; Complete Time: 18:05 rt 03/21 17:48 Order name: Labs collected and sent; Complete Time: 18:05 rt Administered Medications: 18:05 Drug: Acetaminophen PO 1000 mg PO once Route: PO; db 19:00 Follow up: Response: No adverse reaction; Pain is decreased rg5 Disposition Summary: 03/21/24 19:00 Discharge Ordered Notes: Location: Home rt Problem: new rt Symptoms: have improved rt Condition: Stable rt Diagnosis - Low back pain rt Followup: rt - With: Private Physician - When: 2 - 3 days - Reason: Discharge Instructions: - Discharge Summary Sheet rt - Acute Back Pain, Adult rt Forms: - Medication Reconciliation Form rt - Antibiotic Education rt - Prescription Opioid Use rt - Patient Portal Instructions rt - Leadership Thank You Letter rt Prescriptions: - Lidoderm 5 % Topical adhesive patch, medicated - apply 1 patch TOPICAL route daily leave on most painful area for up to 12 hrs; rt 10 patch; Refills: 0, Product Selection Permitted - Cyclobenzaprine 10 mg Oral tablet - take 1 tablet ORAL route every 8 hours As needed; 15 tablet; Refills: 0, rt Product Selection Permitted Signatures: Dispatcher [employer] EDMS Beverly Rivas, RN RN ko1 Emani Cote RN RN db Rafiq Agee MD MD rt Jesús Glez RN rg5 Corrections: (The following items were deleted from the chart) 17:49 17:49 CBC+H.LAB.BRZ ordered. EDMS EDMS 17:49 17:49 COMPREHENSIVE METABOLIC PANEL+C.LAB.BRZ ordered. EDMS EDMS 17:49 17:49 LIPASE+C.LAB.BRZ ordered. EDMS EDMS 17:49 17:49 Urinalysis+U.LAB.BRZ ordered. EDMS EDMS
--- NOTE | 2024-03-21 19:01 | ER ---
Nurse's Notes [facility] Name: Meron Daly Age: 73 yrs Sex: Female : 1950 Arrival Date: 03/21/2024 Time: 17:11 Bed 15 Private MD: Diagnosis: Low back pain Presentation: 03/21 17:20 Chief complaint: Patient states: right flank pain for 2 1/2 months, throbbing pain, ko1 getting worse, has hx of kidney stones. Coronavirus screen: At this time, the client does not indicate any symptoms associated with coronavirus-19. Ebola Screen: No symptoms or risks identified at this time. Initial Sepsis Screen: Does the patient meet any 2 criteria? No. Patient's initial sepsis screen is negative. Does the patient have a suspected source of infection? No. Patient's initial sepsis screen is negative. Risk Assessment: Do you want to hurt yourself or someone else? Patient reports no desire to harm self or others. Onset of symptoms is unknown. 17:20 Method Of Arrival: Ambulatory ko1 17:20 Acuity: MOO 3 ko1 Triage Assessment: 17:27 General: Appears uncomfortable, Behavior is calm, cooperative, appropriate for age. ko1 Pain: Complains of pain in right flank. Historical: - Allergies: 17:27 Sulfa (Sulfonamide Antibiotics); ko1 - PMHx: 17:27 Anxiety; depressive disorder; GERD; kidney stones (tubal ligation); ko1 - PSHx: 17:27 section; Total abdominal hysterectomy; tubal ligation; kidney stones (tubal ko1 ligation); - Immunization history:: Adult Immunizations up to date. - Infectious Disease History:: Denies. - Social history:: Smoking status: Patient denies any tobacco usage or history of. - Family history:: not pertinent. Screenin:24 [facility] ED Fall Risk Assessment (Adult) History of falling in the last 3 months, db including since admission Yes- single mechanical fall (1 pt) Confusion or Disorientation No (0 pts) Intoxicated or Sedated No (0 pts) Impaired Gait No (0 pts) Mobility Assist Device Used No (0 pt) Altered Elimination No (0 pt) Score/Fall Risk Level 0 - 2 = Low Risk Oriented to surroundings, Maintained a safe environment. Abuse screen: Denies threats or abuse. Denies injuries from another. Nutritional screening: No deficits noted. Tuberculosis screening: No symptoms or risk factors identified. Assessment: 18:23 Reassessment: Patient appears in no apparent distress at this time. Patient and/or db family updated on plan of care and expected duration. Pain level reassessed. Patient is alert, oriented x 3, equal unlabored respirations, skin warm/dry/pink. General: Appears in no apparent distress. comfortable, Behavior is calm, cooperative. Neuro: Level of Consciousness is awake, alert, obeys commands, Oriented to person, place, time, situation. Respiratory: Airway is patent Respiratory effort is even, unlabored, Respiratory pattern is regular, symmetrical. 19:00 General: Appears in no apparent distress. distressed, comfortable. rg5 19:00 Pain: Denies pain. Neuro: Level of Consciousness is awake, alert, Oriented to person, rg5 place, time, situation. Cardiovascular: Denies. Respiratory: Airway is patent Respiratory effort is even, unlabored, Respiratory pattern is regular, symmetrical. Vital Signs: 17:20 BP 130 / 85; Pulse 105; Resp 17; Temp 98.5; Pulse Ox 99% ; ko1 18:00 BP 147 / 71; Pulse 94; Resp 18; Pulse Ox 97% on R/A; db 19:00 BP 137 / 83; Pulse 92; Resp 17; Temp 98; Pulse Ox 98% on R/A; Pain 0/10; rg5 19:00 Pain Scale: Adult rg5 ED Course: 17:13 Patient arrived in ED. im 17:15 Rafiq Agee MD is Attending Physician. rt 17:27 Triage completed. ko1 17:27 Arm band placed on right wrist. Patient placed in an exam room, on a stretcher, Patient ko1 notified of wait time. 17:48 Emani Cote, KAITLIN is Primary Nurse. db 17:55 Initial lab(s) drawn, by me, sent to lab. Urine collected:. Inserted saline lock: 20 db gauge in right antecubital area, using aseptic technique. Blood collected. Flushed with 10 mL NS. 18:[address] via wheelchair. db 18:24 Patient has correct armband on for positive identification. Bed in low position. Call db light in reach. Side rails up X 1. Pulse ox on. NIBP on. Pillow given. 18:30 CT Abd/Pelvis - Without Contrast In Process Unspecified. EDMS 19:00 Provided Education on: POST ER CARE. rg5 19:22 No provider procedures requiring assistance completed. IV discontinued, bleeding rg5 controlled, No redness/swelling at site. Pressure dressing applied. Administered Medications: 18:05 Drug: Acetaminophen PO 1000 mg PO once Route: PO; db 19:00 Follow up: Response: No adverse reaction; Pain is decreased rg5 Medication: 18:37 VIS not applicable for this client. db Outcome: 19:00 Discharge ordered by . rt 19:22 Discharged to home ambulatory, rg5 19:22 Condition: stable 19:22 Instructed on discharge instructions, Demonstrated understanding of instructions, follow-up care, medications, Prescriptions given X 2, 19:23 Patient left the ED. rg5 Signatures: Dispatcher [employer] EDBeverly Poole RN RN ko1 Emani Cote RN RN db Rafiq Agee MD MD rt Kusum Daly Rommel, RN RN rg5
[2024-03-21 22:32] VITALS: BP 137/83; TEMP 98; O2SAT 98
== END 2024-03-21 19:23 | disposition home or self-care (01) ==
LOC: ER 17:11
DX: M54.50 Low back pain, unspecified (principal); Z87.442 Personal history of urinary calculi
CPT/HCPCS: 36415; 74176; 80053; 81001; 83690; 85025; 99284